=== PATIENT | female | born 1995 | race Caucasian/White ===

== ENCOUNTER 2018-04-01 08:00 | Outpatient (CLI) | payer MEDICAID | END 2018-04-01 08:01 | disposition home or self-care (01) | LOC: LAB.N 08:00 | PROVIDERS: ATTEND Nurse Practitioner | DX: Z33.3 Pregnant state, gestational carrier (principal) | CPT/HCPCS: 36415; 84702 ==

== ENCOUNTER 2018-04-04 13:49 | Outpatient (CLI) | payer MEDICAID | END 2018-04-04 13:50 | disposition home or self-care (01) | LOC: LAB.N 13:49 | PROVIDERS: ATTEND Nurse Practitioner | DX: Z33.3 Pregnant state, gestational carrier (principal) | CPT/HCPCS: 36415; 84702 ==

== ENCOUNTER 2018-05-30 09:05 | Outpatient (CLI) | payer MEDICAID ==
[2018-05-30] MEDS ORDERED: ALBUTEROL NEB 2.5 MG/3 ML INH ONE (10:00)
== END 2018-05-30 09:06 | disposition home or self-care (01) ==
LOC: RT 09:05
PROVIDERS: ATTEND Obstetrics & Gynecology
DX: J45.20 Mild intermittent asthma, uncomplicated (principal)
CPT/HCPCS: 94060

== ENCOUNTER 2018-06-10 07:29 | Outpatient (CLI) | payer MEDICAID ==
--- NOTE | 2018-06-10 16:27 | Ultrasound Report ---
Procedure Date: 06/10/2018 Accession Number: [id number] / [id number] Procedure: US - OB Detailed Eval CPT Code: FULL RESULT: EXAM: OB Detailed Eval DATE: 06/10/2018 8:55 AM CLINICAL HISTORY: ENCOUNTER FOR SCREENING,UNSPECIFIED TECHNIQUE: Real-time scanning was performed with claim representative static images obtained. COMPARISON: None Formal survey is incomplete due to a earlier than expected gestation which precluded successful formal views of the nose/lips, four-chamber heart, left ventricular outflow tract and right ventricular outflow tract as well as an adequate nuchal fold. LAST MENSTRUAL PERIOD: Unsure US Age: 15 weeks 5 days EFW Hadlock: 133 grams Heart Rate: 148 bpm US EDC: 11/27/2018 BPD Hadlock: 15 weeks 4 days; Mean mm 30 HC Hadlock: 15 weeks 4 days; Mean mm 115 AC Hadlock: 16 weeks 0 days; Mean mm 99 FL Hadlock: 15 weeks 4 days; Mean mm 19 Presentation: Variable Placental Location: Fundal Cervical Length: 4.4 cm Amniotic Fluid: RODNEY Subjectively normal cm; MVP 5.0 cm FINDINGS: Within the unremarkable uterus is a single viable intrauterine in variable presentation due to normal movement supplied by fundal placenta protected by 4.4 cm closed cervix. The adnexa are unremarkable within normal appearing 2.1 x 1.7 x 1.8 cm left adnexal cyst. There is no pelvic free fluid. Amniotic fluid is subjectively normal. The following anatomic structures were visualized and appear normal: The intracranial contents, including the ventricles and posterior fossa; the spine; diaphragm; the abdominal contents, including the stomach, the bilateral kidneys, and urinary bladder, as well as a normal 3-vessel cord insertion; 4 limbs. IMPRESSION: Single viable intrauterine with an estimated gestation age of 15 weeks and 5 days by ultrasound. Estimated delivery date 11/27/2018. Recommendation: Follow-up repeat formal obstetric ultrasound later in the second/third trimester.
== END 2018-06-10 07:30 | disposition home or self-care (01) ==
LOC: DI 07:29
PROVIDERS: ATTEND Obstetrics & Gynecology
DX: Z36.9 Encounter for antenatal screening, unspecified (principal)
CPT/HCPCS: 76811

== ENCOUNTER 2018-06-17 11:01 | Outpatient (CLI) | payer MEDICAID ==
[2018-06-17 11:27] LABS: BASOPHILS # (AUTO) 0.1 10^3/uL (0.0-0.1); BASOPHILS % (AUTO) 0.9 %; EOSINOPHILS # (AUTO) 0.3 10^3/uL (0.0-0.7); EOSINOPHILS % (AUTO) 3.7 %; HGB - HEMOGLOBIN 12.9 g/dL (12.0-16.0); LYMPHOCYTES # (AUTO) 2.2 10^3/uL (1.5-3.5); LYMPHOCYTES % (AUTO) 28.7 %; MEAN CORPUSCULAR HEMOGLOBIN 29.5 pg (27.0-31.0); MEAN CORPUSCULAR HGB CONC 33.5 g/dL (32.0-36.0); MEAN PLATELET VOLUME 9.9 fL (7.9-10.8); MONOCYTES # (AUTO) 0.4 10^3/uL (0.0-1.0); MONOCYTES % (AUTO) 5.5 %; NEUTROPHILS # (AUTO) 4.7 10^3/uL (1.5-6.6); NEUTROPHILS % (AUTO) 61.2 %; PLT - PLATELET COUNT 211 10^3/uL (130-450); RED BLOOD COUNT 4.36 10^6/uL (4.20-5.40); RED CELL DISTRIBUTION WIDTH 15.1 % (12.0-15.0); WHITE BLOOD COUNT 7.7 x10^3/uL (4.8-10.8)
[2018-06-17 11:31] LABS: BILIRUBIN,URINE NEGATIVE (NEGATIVE); GLUCOSE, URINE (UA) NEGATIVE (NEGATIVE); KETONES,URINE (UA) NEGATIVE (NEGATIVE); LEUKOCYTE ESTERASE, URINE NEGATIVE (NEGATIVE); NITRITE,URINE NEGATIVE (NEGATIVE); OCCULT BLOOD,URINE NEGATIVE (NEGATIVE); PROTEIN,URINE NEGATIVE (NEGATIVE); UROBILINOGEN,URINE 0.2 (NORMAL) E.U./dL (NORMAL)
[2018-06-17 11:46] LABS: BACTERIA,URINE Many /HPF (None Seen); CLARITY,URINE HAZY (CLEAR); MUCUS,URINE Few Strands; RBC,URINE 0-5 /HPF (0-5); SQUAMOUS EPITHELIAL CELL,UR MOD Squamous (<= Few)
[2018-06-17 12:21] LABS: T4 (THYROXINE) 12.28 ug/dL (6.09-12.23)
[2018-06-17 12:27] LABS: FREE T4 (FREE THYROXINE) 0.92 ng/dL (0.58-1.64)
[2018-06-18 13:13] LABS: HIV AG/AB 4TH GEN NON-REACTIVE (NON-REACTIVE)
[2018-06-18 13:21] LABS: HEPATITIS B SURFACE ANTIGEN NON-REACTIVE (NON-REACTIVE)
== END 2018-06-17 11:02 | disposition home or self-care (01) ==
LOC: LAB 11:01
PROVIDERS: ATTEND Obstetrics & Gynecology
DX: Z36.9 Encounter for antenatal screening, unspecified (principal); Z36.0 Encounter for antenatal screening for chromosomal anomalies
CPT/HCPCS: 36415; 81001; 81599; 82105; 82677; 84436; 84439; 85025; 86336; 86592; 86762; 86850; 86900; 86901; 87340; 87389

== ENCOUNTER 2018-06-25 13:59 | Emergency (ER) | payer MEDICAID ==
--- NOTE | 2018-06-25 15:39 | ED Physician Documentation ---
PD HPI FEMALE - Stated complaint Stated Complaint: CRAMPING/17WKS PREG - History obtained from History obtained from: Patient - History of Present Illness Timing - onset: Today ( at 17 weeks gestation with 4 episodes of intermittent left-sided and central abdominal cramping today. Each 1 lasts about 10 minutes. In between she is without pain. There is no associated fluid loss or bleeding. No urinary complaints. No nausea.) Review of Systems Constitutional: denies: Fever, Chills Cardiac: denies: Chest pain / pressure, Palpitations Respiratory: denies: Dyspnea, Cough GI: denies: Abdominal Pain PD PAST MEDICAL HISTORY - Present Medications Home Medications: Ambulatory Orders Medication Instructions Recorded Confirmed Albuterol Sulfate [Proair Hfa 06/25/18 Inhaler] Metronidazole [Flagyl] 500 mg PO BID #14 tablet 06/25/18 - Allergies Allergies/Adverse Reactions: Allergies Allergy/AdvReac Type Severity Reaction Status Date / Time No Known Drug Allergies Allergy Verified 06/25/18 14:10 PD ED PE NORMAL - Vitals Vital signs reviewed: Yes - General General: Alert and oriented X 3, No acute distress - Abdomen Abdomen: Normal bowel sounds, Soft, Non tender - Female Female : 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[email or web address]), Other (Bedside ultrasound demonstrates single live intrauterine with a heart rate of 143, cervix is closed and long, she does have significant amount of white discharge but no irritation.) - Neuro Neuro: Alert and oriented X 3, Normal speech - Psych Psych: Normal mood, Normal affect Results - Vitals Vitals: Vital Signs - 24 hr 06/25/18 14:04 Temperature 36.7 C Heart Rate 70 Respiratory 16 Rate Blood Pressure 113/61 O2 Saturation 100 Oxygen O2 Source Room air - Labs Labs: Microbiology 06/25/18 15:55 Wet Prep - Final Cervix Laboratory Tests 06/25/18 15:58 Urine Color YELLOW Urine Clarity CLEAR Urine pH 6.0 Ur Specific [place] 1.010 Urine Protein NEGATIVE Urine Glucose (UA) NEGATIVE Urine Ketones NEGATIVE Urine Occult Blood NEGATIVE Urine Nitrite NEGATIVE Urine Bilirubin NEGATIVE Urine Urobilinogen 0.2 (NORMAL) Ur Leukocyte Esterase NEGATIVE Ur Microscopic Review NOT INDICATED Urine Culture Comments NOT INDICATED PD MEDICAL DECISION MAKING - Sepsis Event Vital Signs: Vital Signs - 24 hr 06/25/18 14:04 Temperature 36.7 C Heart Rate 70 Respiratory 16 Rate Blood Pressure 113/61 O2 Saturation 100 Oxygen O2 Source Room air Departure - Departure Disposition: 01 Home, Self Care Clinical Impression: Bacterial vaginosis Qualifiers: Weeks of gestation: 17 weeks Qualified Code(s): Z3A.17 - 17 weeks gestation of Condition: Good Record reviewed to determine appropriate education?: Yes Instructions: ED Vaginosis Bacterial Prescriptions: Metronidazole [Flagyl] 500 mg PO BID #14 tablet Comments: Call your doctor to arrange a follow-up appointment, make the next available appointment. In the interim, return anytime if worse or if new symptoms develop.
[2018-06-25 16:11] LABS: BILIRUBIN,URINE NEGATIVE (NEGATIVE); GLUCOSE, URINE (UA) NEGATIVE (NEGATIVE); KETONES,URINE (UA) NEGATIVE (NEGATIVE); LEUKOCYTE ESTERASE, URINE NEGATIVE (NEGATIVE); NITRITE,URINE NEGATIVE (NEGATIVE); OCCULT BLOOD,URINE NEGATIVE (NEGATIVE); PROTEIN,URINE NEGATIVE (NEGATIVE); UROBILINOGEN,URINE 0.2 (NORMAL) E.U./dL (NORMAL)
[2018-06-25 16:20] LABS: CLARITY,URINE CLEAR (CLEAR)
[2018-06-25 16:42] VITALS: BP 107/60
== END 2018-06-25 16:42 | disposition home or self-care (01) ==
LOC: ED 13:59
DX: O23.32 Infections of other parts of urinary tract in pregnancy, second trimester (principal); B96.89 Other specified bacterial agents as the cause of diseases classified elsewhere; Z3A.17 17 weeks gestation of pregnancy
CPT/HCPCS: 81001; 81003; 87086; 87210; 87491; 87591; 99283

== ENCOUNTER 2018-07-15 09:37 | Outpatient (CLI) | payer MEDICAID | END 2018-07-15 09:38 | disposition home or self-care (01) | LOC: LAB 09:37 | PROVIDERS: ATTEND Obstetrics & Gynecology | DX: Z13.29 Encounter for screening for other suspected endocrine disorder (principal); Z36.9 Encounter for antenatal screening, unspecified | CPT/HCPCS: 36415; 84443 ==

== ENCOUNTER 2018-07-29 07:10 | Outpatient (CLI) | payer MEDICAID ==
--- NOTE | 2018-07-29 10:31 | Ultrasound Report ---
Reason: ENCOUNTER FOR SCREENING FOR MALFORMATIONS Procedure Date: 07/29/2018 Accession Number: [id number] / [id number] Procedure: US - OB F/U or Repeat CPT Code: FULL RESULT: EXAM: FOLLOW-UP OBSTETRICAL ULTRASOUND EXAM DATE: 07/29/2018 10:06 AM. CLINICAL HISTORY: ENCOUNTER FOR SCREENING FOR MALFORMATIONS. Previous ultrasound limited by early gestational age COMPARISON: 06/10/2018. TECHNIQUE: Real-time sonographic evaluation of the fetus performed by the hair blender. Multiple personnel representative static images were saved for review. DATING: Established EGA 22 weeks 5 days with ELIECER 11/27/2018 based on the initial ultrasound. EGA 22 weeks 4 days with ELIECER 11/28/2018 based on the current ultrasound. GENERAL EVALUATION [place] . Cardiac activity: 152 bpm. movement: Present Presentation: Cephalic. Placenta: Posterior with fundal wrap position. Amniotic fluid: Normal. RODNEY 16.3 cm. MVP 5.3 cm. BIOMETRY Bi-Parietal Diameter (BPD): 5.3 cm, 22 weeks 1 day Head Circumference (HC): 20 cm, 22 weeks 1 day Abdominal Circumference (AC): 18.2 cm, 23 weeks 0 days Femur Length (FL): 4 cm, 22 weeks 5 days Estimated Weight: 535 gm, 47th percentile for . ANATOMY nose and lips, 4 chamber heart and outflow tracts, and nuchal fold are well seen today and appear normal. MATERNAL STRUCTURES Left ovarian cyst has decreased in size currently measuring 1.1 x 1 x 1.1 cm. IMPRESSION: 1. [place] intrauterine with gestational age 22 weeks 4 days based on current ultrasound. 2. Estimated weight is within expected limits for assigned dating. 3. Normal interval growth compared to 06/10/2018. 4. nose and lips, four-chamber heart and outflow tracts are well seen today and appear normal. RADIA
== END 2018-07-29 07:11 | disposition home or self-care (01) ==
LOC: DI 07:10
PROVIDERS: ATTEND Obstetrics & Gynecology
DX: Z36.3 Encounter for antenatal screening for malformations (principal); O34.82 Maternal care for other abnormalities of pelvic organs, second trimester; N83.202 Unspecified ovarian cyst, left side; Z3A.22 22 weeks gestation of pregnancy
CPT/HCPCS: 76816

== ENCOUNTER 2018-08-25 09:04 | Outpatient (CLI) | payer MEDICAID ==
[2018-08-25 10:55] LABS: HGB - HEMOGLOBIN 12.4 g/dL (12.0-16.0); MEAN CORPUSCULAR HEMOGLOBIN 30.3 pg (27.0-31.0); MEAN CORPUSCULAR HGB CONC 34.3 g/dL (32.0-36.0); MEAN CORPUSCULAR VOLUME 88.2 fL (81.0-99.0); RED BLOOD COUNT 4.08 10^6/uL (4.20-5.40); RED CELL DISTRIBUTION WIDTH 13.5 % (12.0-15.0); WHITE BLOOD COUNT 8.4 x10^3/uL (4.8-10.8)
== END 2018-08-25 09:05 | disposition home or self-care (01) ==
LOC: LAB 09:04
PROVIDERS: ATTEND Obstetrics & Gynecology
DX: Z34.90 Encounter for supervision of normal pregnancy, unspecified, unspecified trimester (principal)
CPT/HCPCS: 36415; 82950; 85027; 86850

== ENCOUNTER 2018-11-03 08:00 | Outpatient (CLI) | payer MEDICAID | END 2018-11-03 08:01 | disposition home or self-care (01) | LOC: LAB.R 08:00 | PROVIDERS: ATTEND Obstetrics & Gynecology | DX: Z36.85 Encounter for antenatal screening for Streptococcus B (principal) | CPT/HCPCS: 87081 ==

== ENCOUNTER 2018-11-16 00:49 | Outpatient (CLI) | payer MEDICAID ==
[2018-11-16 01:16] VITALS: BP 121/84
[2018-11-16 02:00] LABS: RUPTURE OF MEMBRANES PLUS NEGATIVE (NEGATIVE)
--- NOTE | 2018-11-17 07:37 | PROVIDER PROGRESS NOTE ---
Subjective - Prog Note Date Prog Note Date: 11/16/18 Prog Note Time: 00:55 - Subjective Subjective: Ms. Neisha hamilton is a cog 22-year-old 2 para 1 at 38 weeks 3 days gestation. She reports possible rupture membranes with leaking fluid that she does not believed to be urine. She has no UTI symptoms. She presents to labor and delivery for evaluation. ROM plus is negative. She has no symptoms suggestive of preeclampsia. Nursing cervical check findings it to be closed, 30% effaced and -4 station, high. Heart tracing is category 1 with baseline at 140s moderate variability and accelerations meeting criteria. There are contractions every 4 minutes but today these are reported as very mild. Assessment patient is not in labor and despite the presence of contractions there is been no documented cervical change from her baseline. She is less than 39 weeks gestation and augmentation of contractions is not recommended. Patient given reassurance and discharged home. Warning sign and callback instructions were reviewed by nursing. Patient will be seen as scheduled this week in clinic
== END 2018-11-16 02:30 | disposition home or self-care (01) ==
LOC: WFO 00:49 → FBP 00:51 → WFO 02:30
PROVIDERS: ATTEND Obstetrics & Gynecology
DX: O47.1 False labor at or after 37 completed weeks of gestation (principal); Z3A.38 38 weeks gestation of pregnancy
CPT/HCPCS: 84112; 99212

== ENCOUNTER 2018-11-23 04:44 | Inpatient (IN) | payer MEDICAID ==
[2018-11-23 06:25] LABS: RUPTURE OF MEMBRANES PLUS POSITIVE (NEGATIVE)
[2018-11-23] MEDS ORDERED: ACETAMINOPHEN 325 MG TABLET PO PRN (06:32)
[2018-11-23] MEDS ORDERED: fentaNYL 100 MCG/2 ML VIAL IVP PRN (06:32)
[2018-11-23] MEDS ORDERED: SODIUM CHLORIDE FLUSH 0.9% 10 ML SYRINGE IVP PRN ×2 (06:32→16:58)
[2018-11-23] MEDS ORDERED: ONDANSETRON 4 MG/2 ML VIAL IVP PRN ×2 (06:32→08:51)
[2018-11-23] MEDS ORDERED: OXYTOCIN/SODIUM CHLORIDE 500 ML IV ONE ×2 (06:44→19:55)
[2018-11-23] MEDS ORDERED: fentaNYL 100 MCG/2 ML VIAL ONE (06:52)
[2018-11-23 06:56] LABS: BASOPHILS # (AUTO) 0.1 10^3/uL (0.0-0.1); BASOPHILS % (AUTO) 0.6 %; EOSINOPHILS # (AUTO) 0.3 10^3/uL (0.0-0.7); EOSINOPHILS % (AUTO) 2.5 %; HGB - HEMOGLOBIN 12.4 g/dL (12.0-16.0); LYMPHOCYTES # (AUTO) 2.3 10^3/uL (1.5-3.5); MEAN CORPUSCULAR HEMOGLOBIN 29.1 pg (27.0-31.0); MEAN CORPUSCULAR HGB CONC 33.8 g/dL (32.0-36.0); MEAN CORPUSCULAR VOLUME 86.2 fL (81.0-99.0); MEAN PLATELET VOLUME 9.6 fL (7.9-10.8); MONOCYTES # (AUTO) 0.6 10^3/uL (0.0-1.0); MONOCYTES % (AUTO) 4.6 %; NEUTROPHILS % (AUTO) 73.3 %; PLT - PLATELET COUNT 190 10^3/uL (130-450); RED BLOOD COUNT 4.25 10^6/uL (4.20-5.40); RED CELL DISTRIBUTION WIDTH 14.2 % (12.0-15.0); WHITE BLOOD COUNT 12.3 x10^3/uL (4.8-10.8)
[2018-11-23] MEDS: LACTATED RINGERS 1,000 ML IV SCH ×2 (06:56→08:27)
[2018-11-23] MEDS ORDERED: BUPIVACAINE 0.25% PF 10 ML VIAL ONE (08:17)
[2018-11-23] MEDS ORDERED: fent/BUPIV 2 MCG/0.125% 250 ML EP ONE (08:17)
--- NOTE | 2018-11-23 08:18 | ANESTHESIA ---
Pre-Anesthesia VS, & Labs - Diagnosis Active labor - Procedure vaginal delivery Vital Signs: Temp Pulse Resp BP Pulse Ox 36.8 C 72 20 133/85 H 99 11/23/18 05:02 11/23/18 05:02 11/23/18 05:02 11/23/18 05:21 11/23/18 05:02 Height 5 ft 4 in Weight (kg) 81.647 kg Body Mass Index 25.0 - NPO Other (N/A--Labor) - Is Patient ?: Yes - Lab Results Current Lab Results: Laboratory Tests 11/23/18 06:47: WBC 12.3 H, RBC 4.25, Hgb 12.4, Hct 36.7 L, MCV 86.2, MCH 29.1, MCHC 33.8, RDW 14.2, Plt Count 190, MPV 9.6, Neut # (Auto) 9.0 H, Lymph # (Auto) 2.3, [place] # (Auto) 0.6, Eos # (Auto) 0.3, Baso # (Auto) 0.1, Absolute Nucleated RBC 0.01, Nucleated RBC % 0.1 Fish Bones: 11/23/18 06:47 Home Medications and Allergies Active Medications Acetaminophen (Tylenol) 650 mg PO Q6H PRN PRN Reason: FEVER > 100.5 F Fentanyl (Fentanyl) 50 mcg IVP Q1H PRN PRN Reason: PAIN Last Admin: 11/23/18 06:55 Dose: 50 mcg Lactated Ringer's (Lr) 1,000 mls @ 150 mls/hr IV .Q6H40M [facility] Last Admin: 11/23/18 06:56 Dose: 150 mls/hr Ondansetron HCl (Zofran Inj) 4 mg IVP Q4H PRN PRN Reason: Nausea / Vomiting Sodium Chloride (Normal Saline Flush 0.9%) 10 ml IVP PRN PRN PRN Reason: NEEDED PER PROVIDER ORDERS Sodium Chloride (Normal Saline Flush 0.9%) 10 ml IVP 0100,0900,1700 [facility] Last Admin: 11/23/18 06:56 Dose: 10 ml Albuterol Sulfate [Proair Hfa Inhaler] 06/25/18 Allergies/Adverse Reactions: Allergies Allergy/AdvReac Type Severity Reaction Status Date / Time No Known Drug Allergies Allergy Verified 06/25/18 14:10 Anes History & Medical History - Anesthetic History Family history of Anesthesia Complications: Denies Family history of Malignant Hyperthermia: Denies - Medical History Cardiovascular: reports: None Pulmonary: reports: Asthma (uses albuterol daily) Gastrointestinal: reports: GERD (during ) Urinary: reports: None Neuro: reports: None Musculoskeletal: reports: Scoliosis Endocrine/Autoimmune: reports: Other (Svetlana's thyroid) Blood Disorders: reports: None Skin: reports: None Smoking Status: Never smoker Psychosocial: reports: No issues indicated Exam General: Alert, Oriented x3, Cooperative, No acute distress Dental: WNL Mouth Openin Fingerbreadth Neck Mobility: Normal Mallampati classification: II Thyromental Distance: 4-6 cm Respiratory: Lungs clear, Normal breath sounds, No respiratory distress, No accessory muscle use Cardiovascular: Regular rate, Normal S1, Normal S2, No murmurs Mental/Cognitive Status: Alert/Oriented X3, Normal for patient Plan Anesthesia Type: Epidural Consent for Procedure(s) Verified and Reviewed: Yes Code Status: Attempt Resuscitation ASA classification: 2-Mild systemic disease Is this case an emergency?: No
[2018-11-23] MEDS ORDERED: NALBUPHINE 10 MG/ML AMP IVP PRN (08:51)
[2018-11-23] MEDS ORDERED: fent/BUPIV 2 MCG/0.125% 250 ML EP PRN (08:51)
[2018-11-23] MEDS ORDERED: NALOXONE 0.4 MG/ML VIAL IVP PRN (08:51)
[2018-11-23] MEDS ORDERED: ePHEDrine 50 MG/ML VIAL IVP PRN (08:51)
[2018-11-23] MEDS ORDERED: SODIUM CHLORIDE FLUSH 0.9% 10 ML SYRINGE IVP SCH (09:00)
--- NOTE | 2018-11-23 09:25 | HISTORY & PHYSICAL EXAMINATION ---
Admit History - Visit Reason Visit Reason: Contractions (Onset 1200 midnight, increased with time. Presented at about 0400 walked and SROM at 0600 clear fluid.) - : 2 Parity: 1 Premature: 0 Ectopic: 0 : 0 Care: positive: [facility] (Started at 7 weeks regular visits. Labs A+, RPR -, rubella immune, 50 gm 92, GBS -. history of HSV, taking Antivirals since 38 weeks.) Risk/History: positive: Genital herpes (on Antivirals) Smoking Status: Never smoker - Mother's Labs Mother's Blood Type: positive: A Mother's RH: positive: Positive GBS: positive: Group B Step Negative Rubella Status: positive: Immune Meds/Allgy - Home Medications Home Medications: Ambulatory Orders Medication Instructions Recorded Confirmed Albuterol Sulfate [Proair Hfa 06/25/18 Inhaler] Metronidazole [Flagyl] 500 mg PO BID #14 tablet 06/25/18 - Allergies Allergies/Adverse Reactions: Allergies Allergy/AdvReac Type Severity Reaction Status Date / Time No Known Drug Allergies Allergy Verified 06/25/18 14:10 Physical - Abdominal Exam Vital Signs: Temp Pulse Resp BP Pulse Ox 36.8 C 72 20 133/85 H 99 11/23/18 05:02 11/23/18 05:02 11/23/18 05:02 11/23/18 05:21 11/23/18 05:02 : 2.5-4 min Contraction Intensity: positive: Strong Uterine Resting Tone: positive: Soft - Monitoring Heart Rate Baseline: 120 Strip Review: positive: Category I - Presentation Presentation: positive: Vertex - Vaginal Exam Membranes: positive: Membranes ruptured (clear fluid) Dilation (in cm): 2.5 Effacement (%): 90% Station: positive: -2 Cervical Position: positive: Midposition - Speculum Exam Speculum Exam Performed: positive: No Findings: positive: Other (ROM Plus +) - Other Notes Labor Progress Note/Additional Text: Epidural in for analgesia Plan for Labor - Plan For Labor I expect patient to be DC'd or transferred within 96 hours.: Yes Plan for Labor: recheck for progress in 2 hours, augment as necessary.
--- NOTE | 2018-11-23 11:03 | PROVIDER PROGRESS NOTE ---
Labor Progress Note - Uterine Monitoring Uterine Monitoring Mode: positive: External toco Contraction Frequency (min/apart): 3-4 Contraction Intensity: positive: Moderate to strong Uterine Resting Tone: positive: Soft - Monitoring Monitor Mode: positive: External ultrasound Heart Rate Baseline: 130 Heart Rate Variability: positive: Minimal (0-5 bpm) Accelerations: positive: Present, 15x15 Decelerations: positive: Early Strip Review: positive: Category I - Vaginal Exam Dilation (in cm): 4 Effacement (%): 90 Station: -1 Cervical Position: Midposition - Labor Progress Note Labor Progress Note/Additional Text: dilatation is progressing. recheck in 3 hours if not progressing will start pitocin.
[2018-11-23] MEDS: LACTATED RINGERS 500 ML IV ONE ×2 (13:24→21:52)
[2018-11-23] MEDS ORDERED: OXYTOCIN/SODIUM CHLORIDE 500 ML IV SCH (13:30)
[2018-11-23] MEDS ORDERED: DEXTROSE 5%-LACTATED RINGERS 1,000 ML IV SCH (15:00)
[2018-11-23] MEDS ORDERED: LACTATED RINGERS 1,000 ML IV ONE ×3 (15:09→16:59)
[2018-11-23] MEDS ORDERED: TERBUTALINE 1 MG/ML VIAL SUBQ ONE ×2 (15:17→15:24)
[2018-11-23] MEDS ORDERED: LACTATED RINGERS 700 ML IV ONE (15:26)
[2018-11-23] MEDS ORDERED: LIDOCAINE 2% 10 ML MDV SUBQ ONE (16:23)
[2018-11-23] MEDS ORDERED: SUCCINYLCHOLINE 200 MG/10 ML VIAL IVP ONE (16:23)
[2018-11-23] MEDS ORDERED: OXYTOCIN 10 UNIT/ML VIAL IV ONE (16:23)
[2018-11-23] MEDS ORDERED: ceFAZolin 2 GM/50 ML 2 GM/50 ML BAG IV ONE (16:23)
[2018-11-23] MEDS ORDERED: PROPOFOL 200 MG/20 ML VIAL IVP ONE (16:23)
[2018-11-23] MEDS ORDERED: fentaNYL 100 MCG/2 ML VIAL IVP ONE (16:23)
[2018-11-23] MEDS ORDERED: KETOROLAC 30 MG/ML VIAL IVP ONE (16:23)
--- NOTE | 2018-11-23 16:56 | DELIVERY NOTE ---
Delivery Note - Labor Labor: positive: Spontaneous, Augmented by oxytocin - Delivery Method Infant Delivery Method: positive: Primary - Presentation Presentation: positive: Vertex, RACHAEL - left occiput anterior - Nuchal Cord Nuchal Cord: positive: Present (with cord arround the left shoulder) - Anesthetic Anesthetic Type: - Amniotic Fluid Description Amniotic Fluid Description: positive: Clear - Delivery Outcome Delivery Outcome: positive: Livebirth - [place] sex: positive: Male (weight 7lb 9oz) - Cord Cord: positive: 3 vessels - Placenta Placenta: positive: Intact, Manual removal - Estimated Blood Loss Estimated Blood Loss (in cc): 600 - Post Delivery Events Post Delivery Events: positive: Unplanned (STAT PLTC/S for repeditive deep decelerations to 60.)
[2018-11-23] MEDS ORDERED: oxyCODONE 5 MG TABLET PO PRN (16:58)
[2018-11-23] MEDS ORDERED: diphenhydrAMINE 25 MG CAPSULE PO PRN (16:58)
--- NOTE | 2018-11-23 17:04 | OPERATIVE REPORT ---
Operative Report - General Admit Date: 11/23/18 Procedure Date: 11/23/18 Planned Procedure: STAT PLTC/S Pre-Op Diagnosis: intolerance of Labor, Deep decelerations to the 60 Procedure Performed: STAT PLTC/S Post Op Diagnosis: Nucal cordx1, LOP, cord down by the lfet shoulder - Other Other Information/Narrative: [id number]
[2018-11-23] MEDS: fentaNYL 100 MCG/2 ML VIAL ONE ×2 (17:11→17:18)
[2018-11-23] MEDS ORDERED: ONDANSETRON 4 MG/2 ML VIAL ONE (17:12)
[2018-11-23] MEDS ORDERED: ACETAMINOPHEN 1,000 MG/100 ML 100 ML IV ONE (17:24)
--- NOTE | 2018-11-23 18:08 | XRAY Report ---
Reason: UNABLE TO COUNT AT BEGINNING OF CASE Procedure Date: 11/23/2018 Accession Number: [id number] / [id number] Procedure: XR - Abdomen 1 View X-Ray CPT Code: 21515 FULL RESULT: EXAM: ABDOMEN RADIOGRAPHY EXAM DATE: 11/23/2018 04:46 PM. CLINICAL HISTORY: POST . UNABLE TO COUNT AT BEGINNING OF CASE. COMPARISON: None. TECHNIQUE: 1 view. FINDINGS: Bowel Gas Pattern: Within normal limits. No dilated loops. Other: No retained instrument identified. Metallic wire over the upper mid abdomen. Soft tissue air over the pelvis compatible with recent surgery. IMPRESSION: 1. Metallic wire over the upper mid abdomen. 2. No retained instrument identified. RADIA
--- NOTE | 2018-11-23 18:37 | OPERATIVE REPORT ---
DATE OF SERVICE: 11/23/2018 Physician: Manan Saucedo MD PREOPERATIVE DIAGNOSES 1. A 38-week term cyesis. 2. Repetitive deep decelerations to the 60s. 2. intolerance of labor. POSTOPERATIVE DIAGNOSES 1. A 38-week term cyesis. 2. Repetitive deep decelerations to the 60s 3. intolerance of labor. 4. Nuchal cord x1, left occiput posterior as well as cord being interspersed between the left shoulder in the anterior uterine wall. SURGEON: Dr. Manan Saucedo. BURRITO MAKER: Tushar Webster, certified nurse warehouse trainer. ANESTHESIA: Camila Simons CRNA. ANESTHETIC: General via endotracheal tube. ESTIMATED BLOOD LOSS: 600 mL IV FLUIDS: 900 mL FINDINGS: Live male right occiput posterior, clear amniotic fluid. Infant weight was 7 pounds 9 ounces, Apgars were 8 and 9. The cord was around the neck x1, as well as interspersed between the left shoulder and the anterior abdominal wall. DESCRIPTION OF PROCEDURE: Patient was taken back to the operating room in a STAT fashion, at which time she was placed on the table. Sunshine catheter had already been placed. She was then prepped and draped with a roll under the right hip. The anesthetic was tested and felt to be inadequate, so the wheel alignment mechanic accomplished a general anesthetic via endotracheal tube. As soon as the cords were entered, a Pfannenstiel incision was made and carried down through the subcutaneous tissue to the fascia. The fascia was incised transversely; then using both blunt and sharp dissection, it was freed from the rectus abdominis and pyramidalis. The peritoneum was entered high. Care was taken to avoid injury to bowel or bladder. At this point, a bladder retractor was placed, and a bladder flap was developed using both blunt and sharp dissection. A low transverse uterine incision was accomplished using a #10 blade and bandage scissors. Upon making the incision, the cord popped medially into the incision and was noted to be around the neck x1. The head was in the left occiput posterior. This was then rotated anterior, brought through the incision, and then delivered. The oropharynx was bulb suctioned. The cord was doubly clamped, and at this time a vigorous infant was noted and was handed to emotional support teacher. Cord blood segment was clamped and sent for cord gases. At this point, cord blood samples were sent for labs. The uterus was exteriorized, and the placenta was manually delivered. The interior portion of the uterus was cleansed twice with a dry lap sponge to ensure there was no evidence of any retained placenta or amniotic membranes. At this point, there was evidence of a T in the incision, which went down toward the cervix on the patient's right-hand side. This was closed with a running locking suture as well as an imbricating layer. The incision itself was closed using a running locking suture of 0 Vicryl and an imbricating layer of 0 Vicryl. The area was inspected. There was 1 small bleeder, and this was treated with [id number] of 2-0 Vicryl. At this point, a moist lap sponge was placed, and then the uterus was tipped forward. The cul-de-sac was suctioned. The estimated blood loss was made at this time roughly 500 mL. The cul-de-sac was irrigated. The uterus was delivered back in the abdominal cavity. The gutters were likewise irrigated. There was no blood noted at that time. At this point, the incision was inspected. There was no evidence of bleeding. The peritoneum was then closed utilizing 2-0 Vicryl. The rectus muscle was noted to not have any bleeding, and so this was reapproximated with 2 sutures of 2-0 Vicryl. The fascia was closed using a looped 0 PDS. Subcutaneous tissue was irrigated and then closed utilizing 2-0 Vicryl interrupted. The incision itself was closed using 4-0 Monocryl, and then a wound VAC was placed. Because of the urgency of the situation, a sponge and instrument count was not accomplished at the beginning of the procedure, so an x-ray was performed, and there was no evidence of any laps or any instruments. Patient tolerated the procedure well and was taken to recovery in stable condition. TD: 11/23/2018 17:18 RENAE
[2018-11-23] MEDS: OXYTOCIN/SODIUM CHLORIDE 500 ML IV SCH (20:01)
[2018-11-23] MEDS ORDERED: oxyCODONE 5 MG TABLET PO SCH (20:05)
[2018-11-23] MEDS ORDERED: fentaNYL 100 MCG/2 ML VIAL IVP SCH (20:05)
[2018-11-23] MEDS: ALBUTEROL NEB 2.5 MG/3 ML INH PRN (21:33)
[2018-11-23] MEDS: SIMETHICONE CHEW 80 MG TABLET PO SCH (21:45)
[2018-11-23] MEDS: DOCUSATE SODIUM 100 MG CAPSULE PO SCH (21:45)
[2018-11-23] MEDS: KETOROLAC 30 MG/ML VIAL IV SCH (22:33)
[2018-11-23] MEDS: oxyCODONE 5 MG TABLET PO PRN (23:16)
[2018-11-24] MEDS: ACETAMINOPHEN 500 MG TABLET PO SCH ×4 (00:39→16:49)
[2018-11-24] MEDS: LACTATED RINGERS 1,000 ML IV SCH ×3 (01:30→15:38)
[2018-11-24] MEDS: oxyCODONE 5 MG TABLET PO PRN ×5 (03:42→20:06)
[2018-11-24] MEDS: KETOROLAC 30 MG/ML VIAL IV SCH ×3 (04:55→10:52)
[2018-11-24 06:19] LABS: BASOPHILS % (AUTO) 0.3 %; EOSINOPHILS # (AUTO) 0.1 10^3/uL (0.0-0.7); EOSINOPHILS % (AUTO) 1.3 %; HGB - HEMOGLOBIN 9.7 g/dL (12.0-16.0); LYMPHOCYTES # (AUTO) 1.8 10^3/uL (1.5-3.5); LYMPHOCYTES % (AUTO) 18.8 %; MEAN CORPUSCULAR HEMOGLOBIN 28.6 pg (27.0-31.0); MEAN CORPUSCULAR HGB CONC 32.8 g/dL (32.0-36.0); MEAN CORPUSCULAR VOLUME 87.4 fL (81.0-99.0); MEAN PLATELET VOLUME 9.3 fL (7.9-10.8); MONOCYTES # (AUTO) 0.6 10^3/uL (0.0-1.0); MONOCYTES % (AUTO) 5.9 %; NEUTROPHILS # (AUTO) 7.2 10^3/uL (1.5-6.6); NEUTROPHILS % (AUTO) 73.7 %; PLT - PLATELET COUNT 158 10^3/uL (130-450); RED CELL DISTRIBUTION WIDTH 14.3 % (12.0-15.0); WHITE BLOOD COUNT 9.7 x10^3/uL (4.8-10.8)
[2018-11-24] MEDS: SODIUM CHLORIDE FLUSH 0.9% 10 ML SYRINGE IVP SCH ×2 (07:30→10:52)
[2018-11-24] MEDS: SIMETHICONE CHEW 80 MG TABLET PO SCH ×3 (08:31→22:07)
--- NOTE | 2018-11-24 08:33 | PROVIDER PROGRESS NOTE ---
Subjective - General Admit Date: 11/23/18 Procedure Date: 11/23/18 Post Op Days: 1 Procedure Performed: STAT PLTC/S - Review of Systems Wound/Incisions: positive: Dressing dry and intact General: positive: No symptoms (Post op Pain 5/10. Pt states this is adiquit pain control. Passing flatus and voiding.) Pulmonary: positive: No symptoms Gastrointestinal: positive: Flatus Genitourinary: positive: No symptoms Objective - Patient Data Reviewed Vital Signs: Yes Vital Signs: Vital Signs x48h Temp Pulse Resp BP Pulse Ox 11/24/18 07:43 16 98 11/24/18 04:54 36.6 C 65 15 118/61 97 11/24/18 03:00 63 16 96 11/24/18 02:00 63 15 117/66 96 11/24/18 01:30 63 18 96 11/24/18 00:32 77 16 113/62 97 Weight: Weight 11/22/18 11/23/18 11/24/18 23:59 23:59 23:59 Weight (kg) 81.647 kg Intake & Output: Intake and Output Totals x24h 11/22/18 11/23/18 11/24/18 23:59 23:59 23:59 Intake Total 645.8 3000 Output Total 1700 1000 Balance -1054.2 1999 - Lab Results Lab Results: 11/24/18 06:10 Other Lab Results: Lab Results x24hrs 11/24/18 Range/Units 06:10 WBC 9.7 (4.8-10.8) x10^3/uL RBC 3.40 L (4.20-5.40) 10^6/uL Hgb 9.7 L (12.0-16.0) g/dL Hct 29.7 L (37.0-47.0) % MCV 87.4 (81.0-99.0) fL MCH 28.6 (27.0-31.0) pg MCHC 32.8 (32.0-36.0) g/dL RDW 14.3 (12.0-15.0) % Plt Count 158 (130-450) 10^3/uL MPV 9.3 (7.9-10.8) fL Neut # (Auto) 7.2 H (1.5-6.6) 10^3/uL Lymph # (Auto) 1.8 (1.5-3.5) 10^3/uL [place] # (Auto) 0.6 (0.0-1.0) 10^3/uL Eos # (Auto) 0.1 (0.0-0.7) 10^3/uL Baso # (Auto) 0.0 (0.0-0.1) 10^3/uL Absolute Nucleated RBC 0.00 x10^3/uL Nucleated RBC % 0.0 /100WBC - Imaging Results Radiology Imaging: positive: Prelim report reviewed, Final report received - Current Medications Current Medications: Current Medications Generic Name Dose Route Start Last Admin Trade Name Freq PRN Reason Stop Dose Admin Acetaminophen 1,000 mg 11/23/18 17:00 11/24/18 07:29 Tylenol PO Not Given Q8H KADEN Albuterol 2.5 mg 11/23/18 20:06 11/23/18 21:33 INH 2.5 mg RTQ4H PRN Administration Wheezing Docusate Sodium 100 mg 11/23/18 21:00 11/23/18 21:45 Colace 100mg Capsule PO 100 mg BID KADEN Administration Lactated Ringer's 1,000 mls @ 100 mls/hr 11/23/18 17:00 11/24/18 07:35 Lr IV Infused .Q10H KADEN Infusion Oxytocin/Sodium Chloride 500 mls @ 1 mls/hr 11/23/18 20:00 11/24/18 07:31 Pitocin/Sodium Chloride IV Infused TITR KADEN Titration Protocol 1 MILLIUNIT/MIN Ketorolac Tromethamine 30 mg 11/23/18 17:00 11/24/18 04:58 Toradol Inj (30mg) IV 11/24/18 11:01 30 mg Q6H KADEN Administration Oxycodone HCl 10 mg 11/23/18 23:00 11/24/18 07:42 Roxicodone PO 10 mg Q4HR PRN Administration PAIN Simethicone 80 mg 11/23/18 22:00 11/23/18 21:45 Mylicon PO 80 mg TID KADEN Administration Sodium Chloride 10 ml 11/23/18 17:00 11/24/18 07:30 Normal Saline Flush 0.9% IVP Not Given 0100,0900,1700 [facility] - Physical Exam Wound/Incisions: positive: Dressing dry and intact General Appearance: positive: No acute distress, Alert Respiratory: positive: Chest non-tender, No respiratory distress, Breath sounds nml Cardiovascular: positive: Regular rate & rhythm, No murmur, No gallop Abdomen: positive: Non-tender, Nml bowel sounds, Mass (U-1) Back: negative: CVA tenderness (R), CVA tenderness (L) Extremities: negative: Calf tenderness, Bryan's sign/cords Neurologic/Psychiatric: positive: Oriented x3 Impression/Plan - Problem List Problem List: 1. POD #1 SP PLTC/S Progressing well.
[2018-11-24] MEDS: DOCUSATE SODIUM 100 MG CAPSULE PO SCH ×2 (11:53→20:06)
[2018-11-24] MEDS: ALBUTEROL NEB 2.5 MG/3 ML INH PRN (13:27)
[2018-11-24] MEDS: IBUPROFEN 600 MG TABLET PO SCH ×2 (16:50→23:02)
[2018-11-25] MEDS: oxyCODONE 5 MG TABLET PO PRN ×3 (00:28→08:36)
[2018-11-25] MEDS: ACETAMINOPHEN 500 MG TABLET PO SCH ×2 (00:45→08:36)
[2018-11-25] MEDS: IBUPROFEN 600 MG TABLET PO SCH ×2 (05:16→11:14)
[2018-11-25] MEDS: SODIUM CHLORIDE FLUSH 0.9% 10 ML SYRINGE IVP SCH ×2 (07:55→11:15)
[2018-11-25] MEDS: LACTATED RINGERS 1,000 ML IV SCH ×2 (07:55→11:15)
[2018-11-25] MEDS: OXYTOCIN/SODIUM CHLORIDE 500 ML IV SCH (07:56)
[2018-11-25] MEDS: DOCUSATE SODIUM 100 MG CAPSULE PO SCH (08:38)
[2018-11-25] MEDS: SIMETHICONE CHEW 80 MG TABLET PO SCH (08:38)
--- NOTE | 2018-11-25 11:23 | PROVIDER PROGRESS NOTE ---
Subjective - Prog Note Date Prog Note Date: 11/25/18 Prog Note Time: 11:21 - Subjective Pt reports feeling: Improved Subjective: Michelle sitting in bed, bottle feeding breast milk to baby Lino. Walking and ambulating well. Normal lochia. Wound vac intermittently turning on to the yellow sign. No nausea or vomiting. Denies fevers or chills. Desires to go home. Objective - Vital Signs/Intake & Output Reviewed Vital Signs: Yes Vital Signs: Vital Signs x48h Temp Pulse Resp BP Pulse Ox 11/25/18 08:45 98.4 F 81 16 117/65 98 11/25/18 05:21 98.2 F 76 16 118/67 99 Intake & Output: Intake & Output 11/22/18 11/23/18 11/24/18 11/25/18 23:59 23:59 23:59 23:59 Intake Total 645.8 3000 Output Total 1700 1300 Balance -1054.2 1700 - Objective General Appearance: positive: No acute distress Eyes Bilateral: positive: Normal inspection Abdomen: positive: Non-tender (Wound vac in place and working well.) Extremities: positive: Non-tender Neurologic/Psychiatric: positive: Oriented x3 - Lab Results Fish Bones: 11/24/18 06:10 Assessment/Plan - Problem List (1) delivery delivered Impression: 22 yo S/p primary CD for NRFHT's, POD #2 Normal recovery Routine care Discharge to home Rx for motrin, tylenol, oxycodone Follow up for removal of wound vac later this week Call for worsening fevers, chills, abdominal pain No lifting > 10 lbs No driving at this time Discharge Plan Disposition: 01 Home, Self Care Condition: Good Diet: Regular Activity Restrictions: Activity as Tolerated (No lifting > 10 lbs) Shower Restrictions: Yes Driving Restrictions: No Weight Bearing: Full Weight Additional Instructions or Follow Up instructions: Call for worsening fevers, chills, abdominal pain or vaginal bleeding. No heavy lifting (> 10 lbs) Showers OK No driving Rxs for motrin, tylenol and oxycodone Follow up later this week for removal of Prevena wound vac No Smoking: If you smoke, Please STOP! Call for help.
[2018-11-25 13:12] VITALS: BP 126/56
--- NOTE | 2018-11-25 13:22 | Labor Flowsheet ---
Labor Flowsheet Datetime Report Generated by CPN: 11/25/2018 13:22 Datetime: 11/25/2018 13:06 VITAL SIGNS NBP Sys/Jena/Mean (mmHg): 126 : 56 : 75 Pulse: 89 LaborFlag: Labor Datetime: 11/25/2018 05:24 SpO2 (%): 100 Datetime: 11/23/2018 18:41 Membranes Ruptured Date/Time: 11/23/2018 06:00 Membranes Rupture Method: Spontaneous Amniotic Fluid Color: Clear Amniotic Fluid Amount: Small Amniotic Fluid Odor: Normal Datetime: 11/23/2018 15:24 Decelerations: Prolonged Datetime: 11/23/2018 15:20 Communication Comments: Dr. Giem ordering a STAT Datetime: 11/23/2018 15:19 Monitor Interventions for FHR: FSE Applied Datetime: 11/23/2018 15:17 Tocolytics: Terbutaline 0.25mg Subcutaneous Datetime: 11/23/2018 15:15 UTERINE ACTIVITY Monitor Mode: External Quality: Moderate Resting Tone (Palpate): Relaxed Contraction Comments: Unable to trace due to maternal positions ASSESSMENT A Monitor Mode: External US FHR Baseline Rate : 135 Variability: Minimal - Undetectable to <=5 bpm Accelerations: None Category: Category II COMMUNICATION Communication: Provider at Bedside Provider Notified (Name): Dr. Giem Datetime: 11/23/2018 15:09 Patient Position/Activity: Hands-Knees Datetime: 11/23/2018 15:07 PATIENT CARE IV/Blood Work: IV Bolus Started Oxygen Amount (LPM): 10 Oxygen Method: Non-Rebreather Patient Care Comments: LR bolus started Datetime: 11/23/2018 15:05 MEDICATIONS Pitocin (milliunits): Discontinued Datetime: 11/23/2018 15:00 Frequency (min): 2-4 Duration (sec): 70-80 Pattern: Normal: <= 5 Contractions in 10 Minutes Datetime: 11/23/2018 13:55 Monitor Interventions for UA: Huntley Adjusted Datetime: 11/23/2018 13:19 VAGINAL EXAM Dilatation (cm): 4.0 Effacement (%): 100 Station: -1 Exam by: Chichi Smith RN Vaginal Bleeding: None Cervix, Consistency: Soft Cervix, Position: Midposition Datetime: 11/23/2018 13:00 Temperature (C): 36.7 Datetime: 11/23/2018 12:45 Pain Presence: None/Denies Pain Coping: Talking Through Contractions Datetime: 11/23/2018 12:00 Respirations: 17 Anesthesia Level Check: T10- Umbilicus Anesthesia Comments: Patient unable to move or feel right leg Datetime: 11/23/2018 11:49 PAIN Pain Scale: 4 Pain Type: Contraction Pain Location: Abdomen Datetime: 11/23/2018 11:15 I/O Interventions: Clear Liquids Given Datetime: 11/23/2018 11:01 Strip Reviewed by: Dr. Giem Datetime: 11/23/2018 08:45 Comments: Poor tracing of FHR during epidural placement Datetime: 11/23/2018 08:40 Epidural Procedure Other: Pump Started Datetime: 11/23/2018 08:35 Antiemetics/Antacids: Zofran (mg) @ 4 Datetime: 11/23/2018 08:34 Epidural Procedure: Loading Dose Datetime: 11/23/2018 08:23 PROCEDURE TIME OUT Procedure Verify: Correct Patient Identity; Correct Side and Site are Marked; Accurate Procedure Co nsent Form; Agreement on Procedure to be Done; Correct Patient Position ANESTHESIA Anesthesia Plans: Epidural Epidural Positioning: Sitting Datetime: 11/23/2018 07:40 Pain Assessment Comments: Significant other at bedside; patient requests epidural Datetime: 11/23/2018 07:05 Temperature Route: Oral Datetime: 11/23/2018 06:52 Analgesics/Sedatives: Fentanyl (mcg) @ 50 Datetime: 11/23/2018 06:43 Stage of : Labor
--- NOTE | 2018-11-25 15:07 | DISCHARGE SUMMARY ---
DATE OF ADMISSION: 11/23/2018 DATE OF DISCHARGE: 11/25/2018 DIAGNOSES ON ADMISSION 1. A 22-year old G2, P0-1-0-1 with a 39-3/7-week intrauterine . 2. Spontaneous rupture of membranes. 3. Early active labor. DIAGNOSES ON DISCHARGE 1. A 22-year-old G2, P1-1-0-2, status post primary delivery on 11/24/2018 secondary nonreassuring heart tones. 2. Normal recovery. BRIEF HISTORY: This is a patient at [facility], [place], who presented on 11/23/2018 with complaints of contractions. She later spontaneously ruptured her membranes in the hospital. Patient was admitted to the hospital and monitored. She was later started on Pitocin for augmentation. Patient denied any symptoms of HSV and was currently on prophylaxis with acyclovir since 38 weeks' gestation. Patient did get an epidural for pain control shortly after her admission to the hospital. Patient was closely monitored and had good long-term variability until about 11/23/2018 at 1455 when she started having variable decelerations with what appeared to be late decelerations and decreasing overall variability. Patient was not immediately delivering and underwent a primary delivery secondary to nonreassuring heart tones. Patient a delivered a viable male , named Lino, weighing 7 pounds 9 ounces. Patient did have a general for anesthesia. Placenta was sent to Pathology. Dr. Zack Blas was there as technical stenographer for delivery. Apgars are 8 and 9 at one and five minutes, respectively, and baby weighed 3400. EBL was 600 mL. It was noted at the time of delivery that there was a nuchal cord x1, and the baby was left occiput posterior. Finally, there was a cord noted to be interspersed between the left shoulder and anterior uterine wall. Patient's recovery has been pretty much unremarkable. She is ambulating and tolerating a regular diet today, on postop day #2. She is urinating well and the pain is controlled with oral medications. She denies any nausea, vomiting, fevers, or chills. Her lochia is reported as normal. Patient verbalizes her desire to go home today. I will discharge patient to home today with prescriptions for Tylenol, Motrin, and oxycodone. Patient has been instructed to take the Tylenol and Motrin primarily for her first line of pain control, and then the oxycodone is for breakthrough pain; she is not to lift more than 10 pounds and is to call should she have any worsening fevers, chills, abdominal pain, or vaginal bleeding. Patient is to return to see us later this week for removal of her Prevena wound VAC. TD: 11/25/2018 12:04 RENAE
== END 2018-11-25 13:21 | disposition home or self-care (01) | DRG 788 ==
LOC: WFO 04:44 → FBP 04:45 → WFO 06:29 → FBP 06:30
PROVIDERS: ADMIT Obstetrics & Gynecology; ATTEND Obstetrics & Gynecology
PROC: 10D00Z1 Extraction of Products of Conception, Low, Open Approach (ICD-10-PCS; principal; 2018-11-23 15:26)
DX: O98.52 Other viral diseases complicating childbirth (principal); B00.9 Herpesviral infection, unspecified; O64.0XX0 Obstructed labor due to incomplete rotation of fetal head, not applicable or unspecified; O69.81X0 Labor and delivery complicated by cord around neck, without compression, not applicable or unspecified; O76 Abnormality in fetal heart rate and rhythm complicating labor and delivery; O99.52 Diseases of the respiratory system complicating childbirth; J45.909 Unspecified asthma, uncomplicated; Z3A.39 39 weeks gestation of pregnancy; Z37.0 Single live birth; Z79.51 Long term (current) use of inhaled steroids
CPT/HCPCS: 36415; 74018; 82803; 84112; 85025; 94640; 99213

== ENCOUNTER 2019-04-22 09:26 | Emergency (ER) | payer MEDICAID ==
[2019-04-22 10:19] LABS: HCG UR QUAL NEGATIVE
[2019-04-22] MEDS ORDERED: IPRATROPIUM/ALBUTEROL 3 ML NEB INH STA (10:55)
--- NOTE | 2019-04-22 11:10 | XRAY Report ---
Reason: SOB,cough Procedure Date: 04/22/2019 Accession Number: [id number] / [id number] Procedure: XR - Chest 2 View X-Ray CPT Code: 83480 FULL RESULT: EXAM: CHEST RADIOGRAPHY EXAM DATE: 04/22/2019 10:30 AM. CLINICAL HISTORY: Shortness of breath, cough. COMPARISON: None. TECHNIQUE: 2 views. FINDINGS: Lungs/Pleura: No focal opacities evident. No pleural effusion. No pneumothorax. Lungs are mildly hyperinflated. Mediastinum: Heart and mediastinal contours are unremarkable. Other: No acute osseous abnormality. There is mild S-shaped scoliosis of the thoracic spine. IMPRESSION: Lungs are mildly hyperinflated. No focal pulmonary consolidation or other acute abnormality. RADIA
--- NOTE | 2019-04-22 11:56 | ED Physician Documentation ---
PD HPI URI - Stated complaint Stated Complaint: SOA - Chief complaint Chief Complaint: Resp - History obtained from History obtained from: Patient - History of Present Illness Timing - onset: Today (Patient Has a history of asthma presents with complaints that she had difficulty breathing today and has used her albuterol inhaler probably 15-20 times in the past 8 hours without any relief. She has coughed up a little bit of yellow phlegm. No fever.Boyfriend has been sick for about 2 weeks with laryngitis. She is not a smoker. She denies .) Timing duration: Days Timing details: Still present Associated symptoms: Nasal congestion, Sore throat, Productive cough. No: Fever, Ear pain - Additional information Additional information: Of note they have been doing some blood work outside of her home and there is been a lot of dust stirred up because of that. Review of Systems Constitutional: denies: Fever Ears: denies: Ear pain Nose: reports: Congestion. denies: Rhinorrhea / runny nose Throat: denies: Sore throat Cardiac: denies: Chest pain / pressure Respiratory: reports: Dyspnea GI: denies: Nausea, Vomiting PD PAST MEDICAL HISTORY - Past Medical History Cardiovascular: None Respiratory: Asthma (uses albuterol daily) Neuro: None Endocrine/Autoimmune: Other (Svetlana's thyroid) GI: GERD (during ) : None Musculoskeletal: Scoliosis Derm: None - Present Medications Home Medications: Ambulatory Orders Medication Instructions Recorded Confirmed Albuterol Sulfate [Proair Hfa 06/25/18 Inhaler] Metronidazole [Flagyl] 500 mg PO BID #14 tablet 06/25/18 RX: Albuterol Sulf [Ventolin Hfa 1 - 2 puffs INH Q4HR PRN #1 inhaler 04/22/19 Inhaler] - Allergies Allergies/Adverse Reactions: Allergies Allergy/AdvReac Type Severity Reaction Status Date / Time No Known Drug Allergies Allergy Verified 04/22/19 09:33 - Social History Smoking Status: Never smoker Results - Vitals Vitals: Vital Signs - 24 hr 04/22/19 04/22/19 04/22/19 09:29 09:40 11:11 Temperature 36.6 C Heart Rate 84 78 Respiratory 20 20 20 Rate Blood Pressure 115/74 O2 Saturation 96 04/22/19 12:11 Temperature Heart Rate 87 Respiratory 18 Rate Blood Pressure 117/64 O2 Saturation 100 Oxygen O2 Source Room air - Labs Labs: Laboratory Tests 04/22/19 10:08 Ur Specific B[place]the 1.020 Urine HCG, Qual NEGATIVE PD MEDICAL DECISION MAKING - ED course Complexity details: re-evaluated patient, d/w patient ED course: The patient's lungs were clear following the DuoNeb. Do not feel that she needs be placed on prednisone or have any need for antibiotics at this time. Her albuterol inhaler is refilled and she should follow-up with her primary care provider as needed. Departure - Departure Disposition: Home, Self Care Clinical Impression: Asthma Qualifiers: Asthma severity: moderate Asthma persistence: unspecified Asthma complication type: with acute exacerbation Qualified Code(s): J45.901 - Unspecified asthma with (acute) exacerbation Condition: Good Instructions: Asthma Dc, ALBUTEROL Oral Inhaler Follow-Up: Whit Kraus DNP [Primary Care Provider] - Prescriptions: RX: Albuterol Sulf [Ventolin Hfa Inhaler] 1 - 2 puffs INH Q4HR PRN #1 inhaler PRN Reason: Shortness Of Air/Wheezing Comments: Use the albuterol inhaler up to every 4 hours as needed.Follow-up with your primary care provider if you continue to feel weak or short of breath. Return to the emergency department if you have increasing shortness of breath, fever or worsening productive cough. Discharge Date/Time: 04/22/19 12:24
[2019-04-22 12:12] VITALS: BP 117/64
== END 2019-04-22 12:24 | disposition home or self-care (01) ==
LOC: ED 09:26
DX: J45.901 Unspecified asthma with (acute) exacerbation (principal)
CPT/HCPCS: 71046; 81025; 94640; 99283

== ENCOUNTER 2019-10-11 12:35 | Emergency (ER) | payer MEDICAID ==
[2019-10-11 12:41] VITALS: BP 126/76
--- NOTE | 2019-10-11 13:14 | XRAY Report ---
Reason: Trauma Procedure Date: 10/11/2019 Accession Number: [id number] / [id number] Procedure: XR - Foot 3 View LT CPT Code: Final Report FULL RESULT: EXAM: LEFT FOOT RADIOGRAPHY EXAM DATE: 10/11/2019 12:50 PM. CLINICAL HISTORY: Trauma. COMPARISON: None. TECHNIQUE: 3 views. FINDINGS: Bones: No fracture or focal bony lesion. Joints: No evidence of dislocation. Soft Tissues: No unexpected soft tissue findings. IMPRESSION: No evidence of fracture or dislocation. RADIA
--- NOTE | 2019-10-11 13:54 | ED Physician Documentation ---
PD HPI LOWER EXT INJURY - Stated complaint Stated Complaint: L FOOT INJ - Chief complaint Chief Complaint: Ext Problem - History obtained from History obtained from: Patient - History of Present Illness PD HPI LOW EXT INJURY LOCATION: Left, Foot Pain level max: 3 Pain level now: 2 Improved by: Rest Worsened by: Moving, Palpating Associated symptoms: Discolored - Additional information Additional information: 23-year-old female states that she was drinking alcohol last night, does not remember what happened but woke up with her left foot hurting this morning. Worse with walking and better with rest. Noted bruising to the base of the fifth toe. Review of Systems Constitutional: denies: Fever : denies: Now EGA Skin: denies: Rash PD PAST MEDICAL HISTORY - Past Medical History Cardiovascular: None Respiratory: Asthma (uses albuterol daily) Neuro: None Endocrine/Autoimmune: Other (Svetlana's thyroid) GI: GERD (during ) : None Musculoskeletal: Scoliosis Derm: None - Present Medications Home Medications: Ambulatory Orders Medication Instructions Recorded Confirmed Albuterol Sulfate [Proair Hfa 06/25/18 Inhaler] - Allergies Allergies/Adverse Reactions: Allergies Allergy/AdvReac Type Severity Reaction Status Date / Time No Known Drug Allergies Allergy Verified 10/11/19 12:39 - Social History Smoking Status: Never smoker PD ED PE NORMAL - Vitals Vital signs reviewed: Yes - General General: Alert and oriented X 3, No acute distress - HEENT HEENT: Moist mucous membranes - Derm Derm: Warm and dry - Extremities Extremities: Other (Left foot tenderness and mild ecchymosis to the base of the fifth toe and over the dorsum of the foot. No deformity. Neurovascular intact.) - Neuro Neuro: Alert and oriented X 3 Results - Vitals Vitals: Vital Signs - 24 hr 10/11/19 12:37 Temperature 36.7 C Heart Rate 71 Respiratory 18 Rate Blood Pressure 126/76 O2 Saturation 100 Oxygen O2 Source Room air - Rads (name of study) Left foot x-ray Radiology: Prelim report reviewed, EMP read contemporaneously, See rad report (Normal) PD MEDICAL DECISION MAKING - ED course Complexity details: reviewed results, re-evaluated patient, considered differential, d/w patient ED course: 23-year-old female with a left foot sprain. Placed in a postop shoe for comfort. No acute findings on x-ray. Patient counseled regarding signs and symptoms for which I believe and urgent re-evaluation would be necessary. Patient with good understanding of and agreement to plan and is comfortable going home at this time This document was made in part using voice recognition software. While efforts are made to proofread this document, sound alike and grammatical errors may occur. Departure - Departure Disposition: 01 Home, Self Care Clinical Impression: Sprain of left foot Qualifiers: Encounter type: initial encounter Qualified Code(s): S93.602A - Unspecified sprain of left foot, initial encounter Condition: Good Instructions: ED Sprain Foot Follow-Up: Your,doctor in 1 week [Other] Comments: Your x-ray does not show any acute abnormality today. You can use Motrin or Tylenol as needed for pain. Wear the postoperative shoe for comfort. Discharge Date/Time: 10/11/19 14:04
== END 2019-10-11 14:04 | disposition home or self-care (01) ==
LOC: ED 12:35
DX: S93.602A Unspecified sprain of left foot, initial encounter (principal); S90.32XA Contusion of left foot, initial encounter; X58.XXXA Exposure to other specified factors, initial encounter
CPT/HCPCS: 99282; 99283

== ENCOUNTER 2020-01-26 12:34 | Emergency (ER) | payer MEDICAID ==
[2020-01-26 12:46] VITALS: BP 127/82
--- NOTE | 2020-01-26 13:49 | ED Physician Documentation ---
PD HPI HEENT - Stated complaint Stated Complaint: SORE THROAT - Chief complaint Chief Complaint: Heent - History obtained from History obtained from: Patient (She has 2 issues, she has an infected cyst inside her right ear canal, and 4 days of sore throat with lost voice. No other respiratory symptoms. No fevers. No fatigue. No recent travel.) Review of Systems Constitutional: denies: Fever, Chills Nose: denies: Rhinorrhea / runny nose Throat: reports: Sore throat Respiratory: denies: Dyspnea, Cough PD PAST MEDICAL HISTORY - Past Medical History Past Medical History: Yes Cardiovascular: None Respiratory: Asthma Neuro: None Endocrine/Autoimmune: Other GI: GERD : None Musculoskeletal: Scoliosis Derm: None - Past Surgical History Past Surgical History: No - Present Medications Home Medications: Ambulatory Orders Medication Instructions Recorded Confirmed Albuterol Sulfate [Proair Hfa 06/25/18 Inhaler] Cephalexin [Keflex] 500 mg PO Q6H #28 capsule 01/26/20 Neomycin/Polymyx/Hc Otic Drops 4 drops OT TID #1 bottle 01/26/20 [Cortisporin Ear Susp] - Allergies Allergies/Adverse Reactions: Allergies Allergy/AdvReac Type Severity Reaction Status Date / Time No Known Drug Allergies Allergy Verified 10/11/19 12:39 - Social History Does the pt smoke?: No Smoking Status: Never smoker Does the pt drink ETOH?: No Does the pt have substance abuse?: No - Immunizations Immunizations are current?: Yes PD ED PE NORMAL - Vitals Vital signs reviewed: Yes - General General: Alert and oriented X 3, No acute distress - HEENT HEENT: Other (Mildly red oropharynx with some laryngitis, no tonsillitis. In side of the right ear canal inferiorly there appears to be a little pointed abscess, it was manipulated during exam and did not seem to have any active pus in it.) - Neck Neck: Supple, no meningeal sign, No bony TTP - Derm Derm: No rash - Neuro Neuro: Alert and oriented X 3, Normal speech Results - Vitals Vitals: Vital Signs - 24 hr 01/26/20 12:44 Temperature 36.6 C Heart Rate 78 Respiratory 18 Rate Blood Pressure 127/82 H O2 Saturation 100 Oxygen O2 Source Room air - Labs Labs: Laboratory Tests 01/26/20 13:30 Group A Strep Rapid Negative PD MEDICAL DECISION MAKING - ED course ED course: She has 2 complaints, laryngitis, does not seem like strep. Strep test was negative. Just needs a note to go back to work. No fever so this seems reasonable. She also has an infected tiny abscess inside the right ear canal which is treated with topical and oral antibiotics. Nothing there to culture. Departure - Departure Disposition: Home, Self Care Clinical Impression: Sore throat Abscess, ear canal Qualifiers: Laterality: right Qualified Code(s): H60.01 - Abscess of right external ear Condition: Good Record reviewed to determine appropriate education?: Yes Instructions: ED Staph Infec Abx Tx Only, ED Pharyngitis Viral Report Pending Prescriptions: Cephalexin [Keflex] 500 mg PO Q6H #28 capsule Neomycin/Polymyx/Hc Otic Drops [Cortisporin Ear Susp] 4 drops OT TID #1 bottle Comments: Recheck with your doctor in 2 days, return for new or worsening symptoms. Forms: Activity restrictions Discharge Date/Time: 01/26/20 13:53
[2020-01-26 13:54] LABS: RAPID STREP SCREEN Negative (Negative)
== END 2020-01-26 13:53 | disposition home or self-care (01) ==
LOC: ED 12:34
DX: J02.9 Acute pharyngitis, unspecified (principal); J04.0 Acute laryngitis; H60.01 Abscess of right external ear
CPT/HCPCS: 87070; 87077; 87430; 99283; 99284

== ENCOUNTER 2020-10-27 21:12 | Outpatient (CLI) | payer MEDICAID | END 2020-10-27 21:13 | disposition home or self-care (01) | LOC: COV 21:12 | PROVIDERS: ATTEND Surgery | DX: Z01.812 Encounter for preprocedural laboratory examination (principal); K43.9 Ventral hernia without obstruction or gangrene; Z20.828 Contact with and (suspected) exposure to other viral communicable diseases ==

== ENCOUNTER 2020-11-01 07:05 | Day surgery (SDC) | payer MEDICAID ==
[~2020-11-01 07:05] MED LIST: CEFAZOLIN SODIUM IN 0.9 % NACL 2 GM/100 ML BAG IV ONE
[2020-11-01] MEDS ORDERED: LACTATED RINGERS 1,000 ML IV ONE ×2 (07:29→10:11)
[2020-11-01 07:32] LABS: HCG UR QUAL NEGATIVE
[2020-11-01] MEDS ORDERED: BUPIVACAINE 0.25% PF 30 ML VIAL ONE (07:59)
--- NOTE | 2020-11-01 08:15 | ANESTHESIA ---
Pre-Anesthesia VS, & Labs - Diagnosis ventral hernia - Procedure open ventral hernia repair with mesh Vital Signs: Temp Pulse Resp BP Pulse Ox 36.2 C L 71 16 114/77 99 11/01/20 07:15 11/01/20 07:15 11/01/20 07:15 11/01/20 07:15 11/01/20 07:15 Height: 5 ft 4 in Weight (kg): 62.3 kg Body Mass Index: 23.6 BMI Classification: Healthy weight - NPO >8 hours - Is Patient ?: No - Lab Results Lab results reviewed: Yes Home Medications and Allergies Albuterol Sulfate [Proair Hfa Inhaler] 1 - 2 puffs INH Q4HR PRN 06/25/18 Allergies/Adverse Reactions: Allergies Allergy/AdvReac Type Severity Reaction Status Date / Time No Known Drug Allergies Allergy Verified 10/11/19 12:39 Anes History & Medical History - Anesthetic History Anesthesia Complications: reports: No previous complications Family history of Anesthesia Complications: Denies Family history of Malignant Hyperthermia: Denies - Medical History Cardiovascular: reports: None Pulmonary: reports: Asthma Gastrointestinal: reports: Chronic constipation Urinary: reports: None Neuro: reports: None Musculoskeletal: reports: Scoliosis Endocrine/Autoimmune: reports: Other (Hashimotos thyroiditis) Blood Disorders: reports: None Skin: reports: None Smoking Status: Never smoker Psychosocial: reports: Cannabis History of Cancer?: No - Surgical History General: Other (buttocks I&D) Exam General: Alert, Oriented x3, Cooperative Dental: WNL Mouth Opening: Greater than 4 Fingerbreadths Neck Mobility: Normal Mallampati classification: II Thyromental Distance: greater than 6 cm Respiratory: Normal breath sounds, No respiratory distress, Wheezing (lower lobes with peak inspiration, denies SOB) Cardiovascular: Regular rate Neurological: Normal speech Mental/Cognitive Status: Alert/Oriented X3, Normal for patient Cognitive Status: Within normal limits Plan Anesthesia Type: General Consent for Procedure(s) Verified and Reviewed: Yes Code Status: Attempt Resuscitation ASA classification: 2-Mild systemic disease Is this case an emergency?: No
[2020-11-01] MEDS ORDERED: MIDAZOLAM 2 MG/2 ML VIAL IVP ONE (08:30)
[2020-11-01] MEDS ORDERED: HYDROmorphone 1 MG/ML CARPUJECT IVP ONE (08:30)
[2020-11-01] MEDS ORDERED: ONDANSETRON 4 MG/2 ML VIAL IVP ONE (08:30)
[2020-11-01] MEDS ORDERED: LIDOCAINE-MPF 2% 5 ML VIAL IM ONE (08:30)
[2020-11-01] MEDS ORDERED: DEXAMETHASONE 4 MG/ML VIAL IVP ONE (08:30)
[2020-11-01] MEDS ORDERED: ROCURONIUM 50 MG/5 ML VIAL IVP ONE (08:30)
[2020-11-01] MEDS ORDERED: fentaNYL 100 MCG/2 ML VIAL IVP ONE (08:30)
[2020-11-01] MEDS ORDERED: ceFAZolin 2 GM in SODIUM CHLORIDE 0.9% 100ML 100 ML IV ONE (08:40)
[2020-11-01] MEDS ORDERED: BUPIVACAINE 0.25% PF 30 ML VIAL SUBQ ONE ×2 (08:56)
[2020-11-01] MEDS ORDERED: MORPHINE 2 MG/ML CARPUJECT IVP PRN (09:40)
[2020-11-01] MEDS ORDERED: NALOXONE 0.4 MG/ML VIAL IVP PRN (09:40)
[2020-11-01] MEDS ORDERED: METOCLOPRAMIDE 10 MG/2 ML VIAL IVP PRN (09:40)
[2020-11-01] MEDS ORDERED: HYDROmorphone 0.5 MG/0.5 ML SYRINGE IVP PRN (09:40)
[2020-11-01] MEDS ORDERED: ATROPINE ABBOJECT 1 MG/10 ML SYRINGE IVP PRN (09:40)
[2020-11-01] MEDS ORDERED: ePHEDrine 50 MG/ML VIAL IVP PRN (09:40)
[2020-11-01] MEDS ORDERED: fentaNYL 100 MCG/2 ML VIAL IVP PRN (09:40)
[2020-11-01] MEDS ORDERED: ONDANSETRON 4 MG/2 ML VIAL IVP PRN ×2 (09:40→10:15)
[2020-11-01] MEDS ORDERED: LACTATED RINGERS 1,000 ML IV SCH (10:00)
--- NOTE | 2020-11-01 10:13 | OPERATIVE REPORT ---
Operative Report - General Procedure Date: 11/01/20 Planned Procedure: open ventral hernia repair with mesh Pre-Op Diagnosis: ventral hernia Procedure Performed: open ventral hernia repair with mesh Post Op Diagnosis: same - Procedure Note Primary Surgeon: dilip ortiz Anesthesia Technique: General LMA, Local Estimated Blood Loss (mL): 9 Drain/Tube Type: Other (none) Findings: 3 x 4 cm defect 1.5 x 2.5 inch mesh Complications: none
[2020-11-01] MEDS ORDERED: HYDROcod/ACETAM 5/325 MG TABLET PO PRN (10:15)
[2020-11-01] MEDS ORDERED: HYDROcod/ACETAM 5/325 MG TABLET ONE (11:05)
--- NOTE | 2020-11-01 11:12 | OPERATIVE REPORT ---
DATE OF SERVICE: 11/01/2020 Physician: Lion Hernandez MD PREOPERATIVE DIAGNOSIS: Ventral hernia. POSTOPERATIVE DIAGNOSES: Ventral and umbilical hernia. PROCEDURE PERFORMED: 1. Open ventral hernia repair with mesh. 2. Preperitoneal dissection for mesh placement. SURGEON: Lion Hernandez MD. CAR STARTER: None. ANESTHESIA: 1. Laryngeal mask anesthesia. 2. Local anesthesia with Marcaine. COMPLICATIONS: None. SPECIMEN: None. ESTIMATED BLOOD LOSS: Less than 10 mL. DRAINS: None. PROSTHETIC: A 1.5 inch wide x 2.5 inch tall polypropylene mesh placed preperitoneal. FINDINGS: A 5 mm umbilical hernia and approximately 2 x 3 cm supraumbilical or ventral hernia for a total defect measuring approximately 3 x 4 cm. INDICATIONS FOR PROCEDURE: The patient is a fairly petite 24-year-old who has had 2 children. She h as developed a diastasis as well as a sizeable symptomatic supraumbilical hernia. She presents for o pen repair with mesh. Risks discussed. Alternatives discussed. All questions answered and consent obtained. DETAILS OF PROCEDURE: The patient was properly identified, brought to the operating room, and placed in supine position. Laryngeal mask anesthesia was induced. Sequential compression devices were urbano yael. She was prepped and draped in a sterile fashion and given preoperative antibiotics. Local anes thetic was given throughout the procedure. An elliptical incision was made just cephalad of her umbi licus. Skin and subcutaneous tissue were removed. Dissection proceeded with cutting current cautery or sharp dissection down to the hernia sac. The hernia was carefully mobilized away from the surrou nding subcutaneous tissue down to the fascial defect edge. The umbilical skin was then excised away from a small umbilical hernia sac. The 2 hernia sacs were carefully released from the fascial defect edge. The small bridge between the 2 hernias was released. The preperitoneal space was then carefu lly developed, largely with blunt dissection. Her diastasis cephalad of the ventral hernia defect wa s repaired with imbricating 0 Ethibond sutures. An approximately 1.5 x 2.5 inch polypropylene mesh w as placed preperitoneal retrorectus. The mesh was secured with approximately a dozen interrupted 0 E thibond sutures. She had laxity of her abdominal wall, which allowed for closure of the fascia over the mesh without tension. There were no apparent complications. Hemostasis was assured. Subcutaneo us tissue was reapproximated with interrupted 2-0 Vicryl suture. The umbilical skin was tacked back down to fascia with interrupted 2-0 Vicryl suture. Buried interrupted subdermal 3-0 Vicryl sutures w ere then placed. The skin was closed with a running 4-0 Monocryl subcuticular suture. A dressing wa s applied. She tolerated the procedure very well. TD: 11/01/2020 10:53
[2020-11-01 12:19] VITALS: BP 100/56
--- NOTE | 2020-11-01 12:58 | ANESTHESIA POST OP EVALUATION ---
Anesthesia Post Eval - Post Anesthesia Eval Vitals: Last Vital Signs Temp 36.4 C L 11/01/20 10:50 Pulse 61 11/01/20 11:44 Resp 14 11/01/20 11:44 BP 100/56 L 11/01/20 11:44 Pulse Ox 96 11/01/20 11:44 CV Function Including HR & BP: positive: Stable Pain Control: positive: Satisfactory Nausea & Vomiting: positive: Negative Mental Status: positive: Baseline Respiratory Status: Airway Patent Hydration Status: Satisfactory Anesthesia Complications: positive: None
== END 2020-11-01 07:06 | disposition home or self-care (01) ==
LOC: SDS 07:05
PROVIDERS: ATTEND Surgery
DX: K43.9 Ventral hernia without obstruction or gangrene (principal); K42.9 Umbilical hernia without obstruction or gangrene; J45.909 Unspecified asthma, uncomplicated
CPT/HCPCS: 49560; 49568; 81025; A9270; C1781; J0690; J1170; J7120

== ENCOUNTER 2021-06-30 09:42 | Emergency (ER) | payer MEDICAID ==
[2021-06-30] MEDS ORDERED: IBUPROFEN 800 MG TABLET PO STA (10:42)
[2021-06-30 10:43] VITALS: BP 127/79
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
== END 2021-06-30 11:19 | disposition home or self-care (01) ==
LOC: ED 09:42
DX: S60.221A Contusion of right hand, initial encounter (principal); W22.09XA Striking against other stationary object, initial encounter; Y92.810 Car as the place of occurrence of the external cause
CPT/HCPCS: 73130; 99282; 99283; A9270

== ENCOUNTER 2021-09-08 09:21 | Emergency (ER) | payer MEDICAID ==
--- NOTE | 2021-09-08 10:17 | ED Physician Documentation ---
PD HPI DYSPNEA - Stated complaint Stated Complaint: SOA - Chief complaint Chief Complaint: Resp - History obtained from History obtained from: Patient - Additional information Additional information: 25yo with asthma with increased SOA x 3 days. Assoc with chest tightness. No fevers. Has nonproductive cough. Her son was exposed to covid, but tested negative. Review of Systems Ten Systems: 10 systems reviewed and negative Constitutional: denies: Fever, Chills, Myalgias Nose: denies: Rhinorrhea / runny nose Throat: denies: Sore throat Respiratory: reports: Dyspnea, Cough PD PAST MEDICAL HISTORY - Past Medical History Cardiovascular: None Respiratory: Asthma Neuro: None Endocrine/Autoimmune: Other (Hashimotos thyroiditis) GI: Chronic constipation : None HEENT: Other Psych: ADD/ADHD Musculoskeletal: Scoliosis Derm: None - Past Surgical History Past Surgical History: No General: Other - Present Medications Home Medications: Ambulatory Orders Medication Instructions Recorded Confirmed Albuterol Sulfate [Proair Hfa 1 - 2 puffs INH Q4HR PRN 06/25/18 10/24/20 Inhaler] HYDROcod/ACETAM 5/325 [[place] 5/325] 1 each PO Q6H PRN #30 tablet 11/01/20 Albuterol Sulf [Ventolin Hfa 1 - 2 puffs INH Q4HR PRN #1 inhaler 09/08/21 Inhaler] predniSONE [Deltasone] 20 mg PO [id number] #21 tab 09/08/21 - Allergies Allergies/Adverse Reactions: Allergies Allergy/AdvReac Type Severity Reaction Status Date / Time No Known Drug Allergies Allergy Verified 09/08/21 09:35 - Social History Does the pt smoke?: No Smoking Status: Never smoker Does the pt drink ETOH?: No Does the pt have substance abuse?: No - Immunizations Immunizations are current?: Yes PD ED PE NORMAL - Vitals Vital signs reviewed: Yes - General General: Alert and oriented X 3, No acute distress - Cardiac Cardiac: RRR, No murmur - Respiratory Respiratory: No respiratory distress, Clear bilaterally, Other (insp/exp wheezes, good air motion) - Abdomen Abdomen: Soft, Non tender - Back Back: No CVA TTP, No spinal TTP - Derm Derm: Normal color, Warm and dry - Extremities Extremities: No edema, No calf tenderness / cord - Neuro Neuro: Alert and oriented X 3, Normal speech Results - Vitals Vitals: Vital Signs - 24 hr 09/08/21 09/08/21 09/08/21 09:30 10:45 11:00 Temperature 36.3 C L Heart Rate 83 95 68 Respiratory 18 16 18 Rate Blood Pressure 121/74 110/67 O2 Saturation 96 95 Oxygen O2 Source Room air PD MEDICAL DECISION MAKING - ED course ED course: 25-year-old woman with asthma exacerbation, nothing in the history or physical to suggest infection but she has been exposed to Covid so we will perform a test for same. She felt better after a DuoNeb and she is started on steroids. Departure - Departure Disposition: Home, Self Care Clinical Impression: Asthma Qualifiers: Asthma severity: mild Asthma persistence: intermittent Asthma complication type: with acute exacerbation Qualified Code(s): J45.21 - Mild intermittent asthma with (acute) exacerbation Condition: Good Record reviewed to determine appropriate education?: Yes Instructions: Asthma Dc Prescriptions: Albuterol Sulf [Ventolin Hfa Inhaler] 1 - 2 puffs INH Q4HR PRN #1 inhaler PRN Reason: Shortness Of Air/Wheezing predniSONE [Deltasone] 20 mg PO [id number] #21 tab Comments: You have a Covid test pending. You need to self quarantine until the result is done and negative. Do not leave your house. Do not get near anybody. The results should be done in 48 to 72 hours. We will call with a positive result, the fastest way to get a negative result for confirmation though is to go to the hospital website at [email or web address], click on the my [facility] tab and sign up for the patient portal. If any friends or family get sick and would like to have a Covid test done, but do not have signs or symptoms that would necessitate being hospitalized, we encourage testing through our coronavirus swabbing station, call [phone] to schedule an appointment. Forms: Activity restrictions Discharge Date/Time: 09/08/21 11:11
[2021-09-08] MEDS ORDERED: IPRATROPIUM/ALBUTEROL 3 ML NEB INH STA (10:25)
[2021-09-08] MEDS ORDERED: predniSONE 20 MG TABLET PO STA (10:25)
[2021-09-08 10:46] VITALS: BP 110/67
== END 2021-09-08 11:11 | disposition home or self-care (01) ==
LOC: ED 09:21
DX: J45.21 Mild intermittent asthma with (acute) exacerbation (principal); Z20.822 Contact with and (suspected) exposure to COVID-19
CPT/HCPCS: 87635; 94640; 99283; 99284; J7512

== ENCOUNTER 2022-06-12 08:00 | Outpatient (CLI) | payer MEDICAID ==
[2022-06-12 13:14] LABS: BASOPHILS % (AUTO) 0.7 %; EOSINOPHILS % (AUTO) 17.9 %; HCT - HEMATOCRIT 39.5 % (37.0-47.0); LYMPHOCYTES % (AUTO) 33.7 %; MEAN CORPUSCULAR HEMOGLOBIN 29.7 pg (27.0-31.0); MEAN CORPUSCULAR HGB CONC 32.9 g/dL (32.0-36.0); MEAN CORPUSCULAR VOLUME 90.2 fL (81.0-99.0); MEAN PLATELET VOLUME 12.2 fL (7.9-10.8); MONOCYTES # (AUTO) 0.3 10^3/uL (0.0-1.0); MONOCYTES % (AUTO) 4.3 %; NEUTROPHILS # (AUTO) 2.5 10^3/uL (1.5-6.6); NEUTROPHILS % (AUTO) 43.2 %; PLT - PLATELET COUNT 239 10^3/uL (130-450); RED BLOOD COUNT 4.38 10^6/uL (4.20-5.40); RED CELL DISTRIBUTION WIDTH 13.4 % (12.0-15.0); WHITE BLOOD COUNT 5.8 x10^3/uL (4.8-10.8)
[2022-06-12 13:25] LABS: SLIDE REVIEW? Indicated
[2022-06-12 13:49] LABS: ALBUMIN 3.9 g/dL (3.2-5.5); ALBUMIN/GLOBULIN RATIO 1.5 (1.0-2.2); ALKALINE PHOSPHATASE 36 IU/L (42-121); ALT ALANINE AMINOTRANSFERASE 12 IU/L (10-60); AST ASPARTATE AMINOTRANSFERASE 12 IU/L (10-42); BILIRUBIN,TOTAL 0.6 mg/dL (0.2-1.0); BUN - BLOOD UREA NITROGEN 9 mg/dL (6-20); CALCIUM 8.9 mg/dL (8.5-10.3); CARBON DIOXIDE - CO2 27 mmol/L (21-32); CHLORIDE 110 mmol/L (101-111); CHOL/HDL RATIO 2.7 (<4.4); CHOLESTEROL 153 mg/dL; CREATININE 0.9 mg/dL (0.4-1.0); GFR - MDRD 75 (>89); GLUCOSE 89 mg/dL (70-100); HDL CHOLESTEROL 56 mg/dL; LDL CHOLESTEROL,CALCULATED 88 mg/dL; LDL/HDL RATIO 1.6 (<4.4); POTASSIUM 3.9 mmol/L (3.5-5.0); SODIUM 141 mmol/L (135-145); TOTAL PROTEIN 6.5 g/dL (6.7-8.2); TRIGLYCERIDES 44 mg/dL; VLDL CHOLESTEROL 9 mg/dL
[2022-06-12 13:51] LABS: RBC MORPHOLOGY (MULTIPLE) 1+ ANISOCYTOSIS (NORMAL)
== END 2022-06-12 23:59 | disposition home or self-care (01) ==
LOC: LAB.N 08:00
PROVIDERS: ATTEND Nurse Practitioner
DX: Z00.00 Encounter for general adult medical examination without abnormal findings (principal); Z13.220 Encounter for screening for lipoid disorders
CPT/HCPCS: 36415; 80053; 80061; 83721; 85025

== ENCOUNTER 2022-08-14 08:00 | Outpatient (CLI) | payer MEDICAID | END 2022-08-14 23:59 | disposition home or self-care (01) | LOC: LAB.WCP 08:00 | PROVIDERS: ATTEND Physician Assistant Medical | DX: J06.9 Acute upper respiratory infection, unspecified (principal); Z20.822 Contact with and (suspected) exposure to COVID-19 ==

== ENCOUNTER 2022-09-19 05:36 | Emergency (ER) | payer MEDICAID ==
[2022-09-19] MEDS ORDERED: SODIUM CHLORIDE 0.9% 1,000 ML IV STA (06:01)
[2022-09-19] MEDS ORDERED: ONDANSETRON 4 MG/2 ML VIAL IVP STA ×2 (06:01→07:59)
[2022-09-19 06:09] LABS: BASOPHILS % (AUTO) 0.4 %; EOSINOPHILS % (AUTO) 7.2 %; HCT - HEMATOCRIT 45.8 % (37.0-47.0); HGB - HEMOGLOBIN 15.2 g/dL (12.0-16.0); LYMPHOCYTES % (AUTO) 17.1 %; MEAN CORPUSCULAR HEMOGLOBIN 29.1 pg (27.0-31.0); MEAN CORPUSCULAR HGB CONC 33.2 g/dL (32.0-36.0); MEAN CORPUSCULAR VOLUME 87.7 fL (81.0-99.0); MEAN PLATELET VOLUME 11.7 fL (7.9-10.8); PLT - PLATELET COUNT 306 10^3/uL (130-450); RED BLOOD COUNT 5.22 10^6/uL (4.20-5.40); RED CELL DISTRIBUTION WIDTH 13.2 % (12.0-15.0); WHITE BLOOD COUNT 15.9 x10^3/uL (4.8-10.8)
[2022-09-19 06:13] LABS: ABNORMAL LYMPHS % (MANUAL) 0 %
[2022-09-19 06:19] LABS: BILIRUBIN,URINE NEGATIVE (NEGATIVE); GLUCOSE, URINE (UA) NEGATIVE (NEGATIVE); KETONES,URINE (UA) NEGATIVE (NEGATIVE); LEUKOCYTE ESTERASE, URINE NEGATIVE (NEGATIVE); NITRITE,URINE NEGATIVE (NEGATIVE); OCCULT BLOOD,URINE NEGATIVE (NEGATIVE); PROTEIN,URINE 30 mg/dL (NEGATIVE); UROBILINOGEN,URINE 0.2 (NORMAL) E.U./dL (NORMAL)
[2022-09-19 06:19] LABS: ALBUMIN 4.8 g/dL (3.2-5.5); ALBUMIN/GLOBULIN RATIO 1.5 (1.0-2.2); BILIRUBIN,TOTAL 0.5 mg/dL (0.2-1.0); CALCIUM 9.2 mg/dL (8.5-10.3); CREATININE 0.9 mg/dL (0.4-1.0); POTASSIUM 3.6 mmol/L (3.5-5.0)
[2022-09-19 06:24] LABS: BAND NEUTROPHILS % (MANUAL) 4 %; DIFFERENTIAL COMMENT MANUAL DIFFERENTIAL; EOSINOPHILS # (MANUAL) 1.4 10^3/uL (0-0.7); LYMPHOCYTES # (MANUAL) 2.5 10^3/uL (1.5-3.5); LYMPHOCYTES % (MANUAL) 16 %; MONOCYTES # (MANUAL) 0.8 10^3/uL (0.0-1.0); NEUTROPHILS # (MANUAL) 11.1 10^3/uL (1.5-6.6); PLATELET ESTIMATE, MANUAL NORMAL (130-450,000) (NORMAL); PLATELET MORPHOLOGY NORMAL APPEARANCE (NORMAL); RBC MORPHOLOGY (MULTIPLE) NORMAL APPEARANCE (NORMAL); WBC MORPHOLOGY (MULTIPLE) NORMAL APPEARANCE (NORMAL)
--- NOTE | 2022-09-19 06:27 | ED Physician Documentation ---
PD HPI NVD - Stated complaint Stated Complaint: N/V - Chief complaint Chief Complaint: Abd Pain - History obtained from History obtained from: Patient - History of Present Illness Timing - onset: Enter time (02:00) Timing - details: Gradual onset Associated symptoms: No: Fever, Abdominal pain Improved by: Other (no ameliorating factors) Worsened by: Other (no exacerbating factors) Recently seen: Not recently seen - Additonal information Additional information: c/o nausea and vomiting since 2 AM . Denies abdominal pain. Denies h/o similar symptoms, denies fever Review of Systems Constitutional: reports: Reviewed and negative GI: reports: Nausea, Vomiting. denies: Abdominal Swelling, Constipation, Diarrhea, Hematemesis, Bloody / black stool PD PAST MEDICAL HISTORY - Past Medical History Past Medical History: Yes Cardiovascular: None Respiratory: Asthma Neuro: None Endocrine/Autoimmune: Other GI: Chronic constipation : None HEENT: Other Psych: ADD/ADHD Musculoskeletal: Scoliosis Derm: None - Past Surgical History Past Surgical History: No General: Other - Present Medications Home Medications: Ambulatory Orders Medication Instructions Recorded Confirmed Albuterol Sulf [Ventolin Hfa 1 - 2 puffs INH Q4HR PRN #1 inhaler 09/08/21 09/19/22 Inhaler] Albuterol Sulfate [Proair Hfa 1 - 2 puffs INH Q4H PRN #1 inhaler 05/19/22 09/19/22 Inhaler] Budesonide [Pulmicort] 1 puffs INH BID #1 inhaler 05/19/22 09/19/22 Ondansetron Odt [Zofran Odt] 4 mg TL Q6H PRN #14 tablet 09/19/22 - Allergies Allergies/Adverse Reactions: Allergies Allergy/AdvReac Type Severity Reaction Status Date / Time No Known Drug Allergies Allergy Verified 09/19/22 05:46 - Social History Does the pt smoke?: No Smoking Status: Never smoker Does the pt drink ETOH?: No Does the pt have substance abuse?: No - Immunizations Immunizations are current?: Yes PD ED PE NORMAL - Vitals Vital signs reviewed: Yes - General General: Alert and oriented X 3, No acute distress, Well developed/nourished - HEENT HEENT: Moist mucous membranes - Cardiac Cardiac: Other - Respiratory Respiratory: Other - Abdomen Abdomen: Normal bowel sounds, Soft, Non tender, Non distended Results - Vitals Vitals: Oxygen O2 Source Room air - Labs Labs: Laboratory Tests 09/19/22 09/19/22 09/19/22 05:48 06:00 06:00 WBC 15.9 H RBC 5.22 Hgb 15.2 Hct 45.8 MCV 87.7 MCH 29.1 MCHC 33.2 RDW 13.2 Plt Count 306 MPV 11.7 H Neut # (Auto) Not Reportable Lymph # (Auto) Not Reportable [place] # (Auto) Not Reportable Eos # (Auto) Not Reportable Baso # (Auto) Not Reportable Absolute Nucleated RBC Not Reportable Total Counted 100 Band Neuts % (Manual) 4 Abnorm Lymph % (Manual) 0 Nucleated RBC % Not Reportable Neutrophils # (Manual) 11.1 H Lymphocytes # (Manual) 2.5 Monocytes # (Manual) 0.8 Eosinophils # (Manual) 1.4 H Basophils # (Manual) 0.0 Differential Comment MANUAL DIFFERENTIAL WBC Morphology NORMAL APPEARANCE Platelet Estimate NORMAL (130-450,000) Platelet Morphology NORMAL APPEARANCE RBC Morph Micro Appear NORMAL APPEARANCE Sodium 142 Potassium 3.6 Chloride 108 Carbon Dioxide 26 Anion Gap 8.0 BUN 13 Creatinine 0.9 Estimated GFR (MDRD) 75 L Glucose 122 H Calcium 9.2 Total Bilirubin 0.5 AST 19 ALT 15 Alkaline Phosphatase 47 Total Protein 8.0 Albumin 4.8 Globulin 3.2 Albumin/Globulin Ratio 1.5 Lipase 30 Urine Color YELLOW Urine Clarity CLEAR Urine pH 6.0 Ur Specific [place] >=1.030 H Urine Protein 30 H Urine Glucose (UA) NEGATIVE Urine Ketones NEGATIVE Urine Occult Blood NEGATIVE Urine Nitrite NEGATIVE Urine Bilirubin NEGATIVE Urine Urobilinogen 0.2 (NORMAL) Ur Leukocyte Esterase NEGATIVE Urine RBC None Seen Urine WBC 0-3 Ur Squamous Epith Cells MANY Squamous H Urine Bacteria Few Urine Mucus Few Strands Ur Microscopic Review INDICATED Urine Culture Comments NOT INDICATED Urine HCG, Qual NEGATIVE PD MEDICAL DECISION MAKING - ED course Complexity details: reviewed results, re-evaluated patient, considered differential, d/w patient ED course: Given zofran 4mg IV and 1 liter NS IV with improvement in symptoms, given second dose of 4mg IV zofran for residual nausea. No concerning findings on blood tests (mild leukocytosis noted). Benign (nontender) abdominal exam. Results d/w patient. No further testing including imaging not indicated at this time. E tiology of symptoms not apparent at this time. Return precautions discussed. Departure - Departure Disposition: 01 Home, Self Care Clinical Impression: Vomiting Condition: Good Instructions: ED Nausea Vomiting Follow-Up: Angela Wright ARNP [Primary Care Provider] - Prescriptions: Ondansetron Odt [Zofran Odt] 4 mg TL Q6H PRN #14 tablet PRN Reason: Nausea / Vomiting Comments: The results of tonight's tests are unremarkable (your white blood cell count was elevated but not to a concerning extent; this is a non-specific finding and the remainder of your blood tests had no notable findings). The cause of your symptoms is not apparent at this time. A prescription for ondansetron (anti- nausea medication) has been electronically submitted to [facility] pharmacy in [place]. Forms: Activity restrictions Discharge Date/Time: 09/19/22 08:15
[2022-09-19 06:28] LABS: BACTERIA,URINE Few /HPF (None Seen); CLARITY,URINE CLEAR (CLEAR); HCG UR QUAL NEGATIVE; RBC,URINE None Seen /HPF (0-5); SQUAMOUS EPITHELIAL CELL,UR MANY Squamous (<= Few); WBC,URINE 0-3 /HPF (0-5)
[2022-09-19 06:29] LABS: MUCUS,URINE Few Strands
[2022-09-19 08:20] VITALS: BP 123/82
== END 2022-09-19 08:15 | disposition home or self-care (01) ==
LOC: ED 05:36
DX: R11.10 Vomiting, unspecified (principal)
CPT/HCPCS: 36415; 80053; 81001; 81003; 81025; 83690; 85025; 87086; 96374; 96376; 99282

== ENCOUNTER 2023-05-31 09:45 | Outpatient (CLI) | payer MEDICAID ==
--- NOTE | 2023-05-31 17:42 | Ultrasound Report ---
PROCEDURE: Abdomen Limited INDICATIONS: LLQ ABD PAIN. History of periumbilical hernia repair. TECHNIQUE: Real-time focused scanning was performed of the left lower quadrant, with image documentation. COMPARISONS: None. FINDINGS: No definite/obvious left lower quadrant abdominal wall hernia identified at the area of concern. No d efinite sonographic abnormality seen in this region. IMPRESSION: No definite/obvious left lower quadrant abdominal wall hernia or sonographic abnormality at the patie nt indicated area of pain. CT could be obtained for further evaluation if clinically indicated. Reviewed by: Jesús Bates MD on 05/31/2023 5:41 PM PDT Approved by: Jesús Bates MD on 05/31/2023 5:41 PM PDT Station ID: [id number]
== END 2023-05-31 09:46 | disposition home or self-care (01) ==
LOC: DI 09:45
PROVIDERS: ATTEND Physician Assistant
DX: R10.32 Left lower quadrant pain (principal)

== ENCOUNTER 2024-02-09 16:29 | Emergency (ER) | payer MEDICAID ==
[2024-02-09 16:51] VITALS: BP 147/71; O2SAT 96
[2024-02-09] MEDS: LIDOCAINE 1% 2 ML VIAL SUBQ STA (17:31)
--- NOTE | 2024-02-09 17:55 | ED Physician Documentation ---
PD HPI SKIN - Stated complaint Stated Complaint: RT HAND FINGER LAC - Chief complaint Chief Complaint: Laceration PD PAST MEDICAL HISTORY - Past Medical History Cardiovascular: None Respiratory: Asthma Neuro: None Endocrine/Autoimmune: Other GI: Chronic constipation : None HEENT: Other Psych: ADD/ADHD Musculoskeletal: Scoliosis Derm: None - Past Surgical History Past Surgical History: No General: Other - Present Medications Home Medications: Ambulatory Orders Medication Instructions Recorded Confirmed Albuterol Sulfate [Proair Hfa 1 - 2 puffs INH Q4H PRN #1 inhaler 05/19/22 02/09/24 Inhaler] - Allergies Allergies/Adverse Reactions: Allergies Allergy/AdvReac Type Severity Reaction Status Date / Time No Known Drug Allergies Allergy Verified 02/09/24 16:46 - Social History Does the pt smoke?: No Smoking Status: Never smoker Does the pt drink ETOH?: No Does the pt have substance abuse?: No Substance Use and Type: Marijuana - Immunizations Immunizations are current?: Yes Results - Vitals Vitals: Vital Signs - 24 hr 02/09/24 02/09/24 16:41 18:03 Temperature 37 C 37 C Heart Rate 95 95 Respiratory 16 16 Rate Blood Pressure 147/71 H 147/71 H O2 Saturation 96 96 Oxygen O2 Source Room air Procedures - Laceration (location) right thumb laceration Length in cm: 3 Wound type: Flap, Superficial, Into subcut fat, Clean Neurovascular status: Sensory intact, Motor intact, Vascular intact Anesthesia: Lidocaine 1% Wound preparation: Irrigated copiously NS Skin layer closure: Size #-0 - enter number (4-0), Sutures - enter # (7) Other: Patient tolerated well, No complications, Neurovascular intact, Dressing applied, Tetanus UTD PD Medical Decision Making - ED course ED course: Wound inspected under direct bright light with good visualization. Area with linear laceration across soft tissue through adipose without exposure of muscle belly or tendon. No overt foreign body. Area hemostatic. Neurovascular exam congruent with above. Area extensively irrigated with sterile normal saline under pressure. Laceration repaired in simple fashion With 7 sutures(please see procedure note for further details). Patient tolerated procedure well and ne urovascular exam intact and unchanged post repair with intact distal pulses and cap refill. Cautious return precautions discussed w/ full understanding. Wound care discussed. Prompt follow up with primary care physician discussed and return for suture removal in 7-10 days. Departure - Departure Disposition: 01 Home, Self Care Clinical Impression: Finger laceration Qualifiers: Encounter type: initial encounter Finger: thumb Damage to nail status: without damage Foreign body presence: without foreign body Laterality: right Qualified Code(s): S61.011A - Laceration without foreign body of right thumb without damage to nail, initial encounter Instructions: ED Laceration Hand Comments: Come back for any signs of infection which would include: Redness, swelling, drainage, increased pain, or fevers. You can wash it soap and water. Keep it covered and moist with bacitracin ointment which is available over the counter; avoid neosporin. Follow-up with your physician in 7-10 days for suture removal. Forms: PCP List Discharge Date/Time: 02/09/24 18:05
== END 2024-02-09 18:05 | disposition home or self-care (01) ==
LOC: ED 16:29
DX: S61.011A Laceration without foreign body of right thumb without damage to nail, initial encounter (principal); W26.0XXA Contact with knife, initial encounter; Y93.G9 Activity, other involving cooking and grilling
CPT/HCPCS: 12002; 99282